=== PATIENT | female | born 1935 | race Caucasian/White ===

== ENCOUNTER 2020-05-03 09:37 | Inpatient (IN) | payer MEDICARE, BC ==
[~2020-05-03] VITALS: Ht 165.1 cm; Wt 67.1 kg
[2020-05-03] MEDS ORDERED: IV NORMAL SALINE 500 ML BAG IV ONE (09:45)
--- NOTE | 2020-05-03 09:50 | NUR ---
Patient BIB RA from home for c/o gen weakness. A/Ox4. Speech is clear, speaks in complete sentences. No acute neuro deficits at this time. Respiratory even and unlabored, no cough or sob. No cardiovascular distress, denies any cp, palpitations. Denies any n/v/d, or any distress at this time. Patient in bed at lowest position, sr upx2, call light within reach. Fall and safety precautions implemented per protocol.
--- NOTE | 2020-05-03 09:52 | NUR ---
DR Bah spoke to Dr Fragoso for tele admit.
[2020-05-03 10:13] LABS: BASOPHILS % (AUTO) 0.2 % (0.0-2.0); EOSINOPHILS # (AUTO) 0.1 K/uL (0.0-0.7); EOSINOPHILS % (AUTO) 0.7 % (0.0-7.0); LYMPHOCYTES # (AUTO) 1.3 K/uL (20.0-40.0); LYMPHOCYTES % (AUTO) 9.2 % (20.5-51.5); MEAN CORPUSCULAR HEMOGLOBIN 29.1 uug (24.7-32.8); MEAN CORPUSCULAR HGB CONC 31 g/dL (32.3-35.6); MEAN CORPUSCULAR VOLUME 92.7 fL (75.5-95.3); MONOCYTES % (AUTO) 7.3 % (0.0-11.0); NEUTROPHILS # (AUTO) 11.7 K/uL (1.8-8.9); NEUTROPHILS % (AUTO) 82.6 % (38.5-71.5); PLATELET COUNT (AUTO) 300 K/uL (179-408); WHITE BLOOD COUNT (AUTO) 14.1 K/uL (3.8-11.8)
[2020-05-03] MEDS ORDERED: IMIP25TA6 PO (10:14)
[2020-05-03] MEDS ORDERED: VALS320T2 PO (10:14)
[2020-05-03] MEDS ORDERED: THYR60TA2 PO (10:14)
[2020-05-03] MEDS ORDERED: APIX2.5T PO (10:14)
[2020-05-03] MEDS ORDERED: ALLO100T PO (10:14)
[2020-05-03] MEDS ORDERED: AMLO10TA7 PO (10:14)
[2020-05-03] MEDS ORDERED: MEMA10TA PO (10:14)
[2020-05-03 10:17] LABS: HEMOGLOBIN 5.8 g/dL (10.9-14.3); RED BLOOD CELL COUNT(AUTO) 1.99 MIL/uL (3.63-4.92)
[2020-05-03 10:18] LABS: HEMATOCRIT 18.4 % (31.2-41.9)
[2020-05-03 10:22] LABS: CARBON DIOXIDE 25 mmol/L (21-32); CHLORIDE 109 mmol/L (98-107); CREATININE 2.2 mg/dL (0.6-1.3); GLUCOSE 125 mg/dL (74-106); POTASSIUM 3.8 mmol/L (3.5-5.1)
[2020-05-03 10:30] LABS: UREA NITROGEN, BLOOD 100 mg/dL (7-18)
[2020-05-03] MEDS ORDERED: PANTOPRAZOLE SODIUM IV 80 MG in IV DEXTROSE 5% 100 ML IV ONE (10:30)
[2020-05-03 10:38] LABS: *OCCULT BLOOD STOOL POSITIVE (NEGATIVE)
[2020-05-03] MEDS ORDERED: PANTOPRAZOLE SODIUM 40 MG VIAL ONE (10:43)
[2020-05-03] MEDS ORDERED: Z GUARD REMEDY PASTE 57 GM TUBE TOP PRN (11:30)
[2020-05-03] MEDS ORDERED: MAGNESIUM HYDROXIDE 30 ML LIQUID UDC PO PRN (11:30)
[2020-05-03] MEDS ORDERED: PANTOPRAZOLE SODIUM IV 40 MG in IV DEXTROSE 5% 100 ML IV ONE (11:30)
[2020-05-03] MEDS ORDERED: ONDANSETRON 4 MG/2 ML VIAL IV PRN (11:30)
[2020-05-03] MEDS ORDERED: HYDROCODONE/APAP 5-325MG TABLET PO PRN (11:30)
--- NOTE | 2020-05-03 11:30 | NUR ---
Patient placed on O2 via NC.
[2020-05-03 11:56] LABS: EOSINOPHILS % (MANUAL) 1 % (0-8); LYMPHOCYTES % (MANUAL) 22 % (20-40); MONOCYTES % (MANUAL) 6 % (2-10); NEUTROPHILS % (MANUAL) 71 % (42-75)
--- NOTE | 2020-05-03 12:41 | NUR ---
Report given to SAM Price
--- NOTE | 2020-05-03 13:07 | NUR ---
pRBC #1 started, pre-infusion vitals taken. Will continue to monitor during initial blood infusion.
--- NOTE | 2020-05-03 13:22 | NUR ---
post 15min infusion patient negative for any transfusion reactions. Patient will be transported to [facility] to be monitored closely.
--- NOTE | 2020-05-03 13:40 | NUR ---
Patient transported to [facility] in stable condition. Transfusion infusing well.
--- NOTE | 2020-05-03 14:00 | NUR ---
Received pt from ER. TELE SNR. Blood infusing on left hand without any s/s of infiltration. Noted redness on martha heels picture taken. Pt very pale vss taken. No s/s of any current active bleeding but will monitor. Pt is in no acute distress. Pt able to return demonstrate proper use of call light. Call light is within reach. Pt denies any c/o pain.
[2020-05-03 14:15] VITALS: BP 114/60
[2020-05-03] MEDS: IMIPRAMINE HCL 25 MG TABLET PO SCH (17:39)
--- NOTE | 2020-05-03 18:15 | NUR ---
1800Called LAb secondary to recheck of h/h is not done yet. test and turn up technician states shell draw blood soon. 1814 Noted culture media laboratory assistant here to draw blood on patient. Urine specimen sent to lab as ordered. Pt tolerated the blood transfusion - ended @ 1525. No reaction noted. Pt started on clear liquid - no c/o n/v. Pt is in no acute distress.
[2020-05-03 18:40] LABS: *BILIRUBIN,URIN NEGATIVE (NEGATIVE); *BLOOD, URINE NEGATIVE (NEGATIVE); *CLARITY,URINE SLIGHTLY CLOUDY (CLEAR); *COLOR,URINE YELLOW (YELLOW); *KETONES,URINE NEGATIVE (NEGATIVE); *UROBILINOGEN,URINE 0.2 E.U./dl (NORMAL); LEUKOCYTE ESTERASE ,URINE 1+ (NEGATIVE); NITRITE, URINE NEGATIVE (NEGATIVE); PH,URINE 5.5 (5.0-8.0); UGLUCOSE NEGATIVE (NEGATIVE)
[2020-05-03 18:48] LABS: BASOPHILS % (AUTO) 0.3 % (0.0-2.0); EOSINOPHILS # (AUTO) 0.2 K/uL (0.0-0.7); EOSINOPHILS % (AUTO) 1.1 % (0.0-7.0); HEMATOCRIT 21.7 % (31.2-41.9); LYMPHOCYTES # (AUTO) 1.2 K/uL (20.0-40.0); LYMPHOCYTES % (AUTO) 7.7 % (20.5-51.5); MEAN CORPUSCULAR HEMOGLOBIN 29.2 uug (24.7-32.8); MEAN CORPUSCULAR HGB CONC 32 g/dL (32.3-35.6); MEAN CORPUSCULAR VOLUME 92.4 fL (75.5-95.3); MONOCYTES # (AUTO) 1.3 K/uL (2.0-10.0); MONOCYTES % (AUTO) 8.4 % (0.0-11.0); NEUTROPHILS # (AUTO) 12.6 K/uL (1.8-8.9); NEUTROPHILS % (AUTO) 82.5 % (38.5-71.5); PLATELET COUNT (AUTO) 254 K/uL (179-408); WHITE BLOOD COUNT (AUTO) 15.3 K/uL (3.8-11.8)
[2020-05-03 18:49] LABS: RED BLOOD CELL COUNT(AUTO) 2.35 MIL/uL (3.63-4.92)
[2020-05-03 19:00] LABS: HEMOGLOBIN 6.9 g/dL (10.9-14.3)
--- NOTE | 2020-05-03 19:30 | NUR ---
RECEIVED PT IN NO ACUTE DISTRESS. PT ALERT AND ORIENTEDX3. IV INTACT. SAFETY AND COMFORT PROVIDED.WILL CONTINUE TO MONITOR.
[2020-05-03 20:36] VITALS: BP 123/60
--- NOTE | 2020-05-03 20:50 | NUR ---
UPDATE THE RESULT OF THE HEMOGLOBIN RESULT TO DR NURSING HOME MANAGER. DR SANCHEZ ORDERED 1PRBC TO BE TRANSFUSE AND LASIX 20 MG POST TRANSFUSION.
[2020-05-03 21:44] LABS: BACTERIA,URINE MODERATE /HPF (NONE SEEN); RBC,URINE 0-3 /HPF (0-3); SQUAMOUS EPITHELIAL CELL,UR FEW /HPF (NONE SEEN)
[2020-05-03 23:31] VITALS: BP 108/56
[2020-05-03 23:51] VITALS: BP 107/51
[2020-05-04] VITALS (16 sets, daily range): BP systolic 82–116; BP diastolic 45–62
--- NOTE | 2020-05-04 02:20 | NUR ---
BLOOD TRANSFUSION DONE. NO ADVERSE REACTION NOTED. PT AFEBRILE. BLOOD PRESSURE WITHIN NORMAL LIMIT. WILL CONTINUE TO MONITOR.
[2020-05-04] MEDS ORDERED: FUROSEMIDE 20 MG/2 ML VIAL IV ONE (04:15)
[2020-05-04] MEDS: ACETAMINOPHEN 325 MG TABLET PO PRN ×2 (04:48→17:05)
--- NOTE | 2020-05-04 06:19 | NUR ---
PT SLEPT INTERMITTENTLY. PT IN NO ACUTE DISTRESS. PT GIVEN TYLENOL AT 0448H FOR HER BILATERAL LEG PAIN. IV INTACT. PT COMPLIANT WITH CARE. PT CAN MAKE HER NEEDS KNOWN. SAFETY AND COMFORT PROVIDED. ALL NEEDS ARE MET WILL ENDORSE TO INCOMING NURSE FOR CONTINUITY OF CARE.
[2020-05-04 06:54] LABS: BASOPHILS % (AUTO) 0.2 % (0.0-2.0); EOSINOPHILS # (AUTO) 0.2 K/uL (0.0-0.7); EOSINOPHILS % (AUTO) 1.8 % (0.0-7.0); HEMATOCRIT 23.9 % (31.2-41.9); HEMOGLOBIN 7.8 g/dL (10.9-14.3); LYMPHOCYTES % (AUTO) 7.1 % (20.5-51.5); MEAN CORPUSCULAR HEMOGLOBIN 29.8 uug (24.7-32.8); MEAN CORPUSCULAR HGB CONC 33 g/dL (32.3-35.6); MEAN CORPUSCULAR VOLUME 91.2 fL (75.5-95.3); MONOCYTES # (AUTO) 1.2 K/uL (2.0-10.0); NEUTROPHILS # (AUTO) 11.1 K/uL (1.8-8.9); NEUTROPHILS % (AUTO) 81.9 % (38.5-71.5); PLATELET COUNT (AUTO) 232 K/uL (179-408); RED BLOOD CELL COUNT(AUTO) 2.62 MIL/uL (3.63-4.92); WHITE BLOOD COUNT (AUTO) 13.5 K/uL (3.8-11.8)
[2020-05-04 07:08] LABS: CARBON DIOXIDE 22 mmol/L (21-32); CHLORIDE 109 mmol/L (98-107); CHOLESTEROL 87 mg/dL (<200); CREATININE 2.5 mg/dL (0.6-1.3); GLUCOSE 112 mg/dL (74-106); HDL CHOLESTEROL 25 mg/dL (40-60); MAGNESIUM 1.5 mg/dL (1.8-2.4); PHOSPHOROUS 3.5 mg/dL (2.5-4.9); POTASSIUM 3.7 mmol/L (3.5-5.1); TRIGLYCERIDES 123 MG/DL (30-150)
[2020-05-04 07:41] LABS: UREA NITROGEN, BLOOD 101 mg/dL (7-18)
--- NOTE | 2020-05-04 08:00 | NUR ---
Pt is in no acute distress. Pt very pale. Current h/h trending up. Will monitor pt for bleeding. Fall precaution implemented. Call light is within reach. IV site no redness noted.
[2020-05-04] MEDS: AMLODIPINE 10 MG TABLET PO SCH (08:09)
[2020-05-04] MEDS: THYROID 60 MG TABLET PO SCH (08:09)
[2020-05-04] MEDS: ALLOPURINOL 100 MG TABLET PO SCH (08:09)
[2020-05-04] MEDS: NAMENDA 14 MG PO SCH (08:13)
[2020-05-04] MEDS ORDERED: PANTOPRAZOLE SODIUM 40 MG VIAL IV SCH (09:00)
[2020-05-04] MEDS: CEFTRIAXONE 1 G in IV DEXTROSE 5% 50 ML IV SCH (10:41)
[2020-05-04 10:53] LABS: BILIRUBIN,DIRECT 0.2 mg/dL (0.0-0.2); BILIRUBIN,TOTAL 0.6 mg/dL (0.2-1.0)
[2020-05-04] MEDS ORDERED: MAGNESIUM SULFATE/D5W 100 ML IV SCH (11:00)
--- NOTE | 2020-05-04 12:00 | NUR ---
Pt tolerated physical therapy session. Pt kept NPO for possible EGD today at 6PM .
[2020-05-04 14:02] LABS: BASOPHILS % (AUTO) 0.2 % (0.0-2.0); EOSINOPHILS # (AUTO) 0.2 K/uL (0.0-0.7); EOSINOPHILS % (AUTO) 1.3 % (0.0-7.0); HEMATOCRIT 21.3 % (31.2-41.9); LYMPHOCYTES # (AUTO) 0.8 K/uL (20.0-40.0); LYMPHOCYTES % (AUTO) 5.7 % (20.5-51.5); MEAN CORPUSCULAR HEMOGLOBIN 28.9 uug (24.7-32.8); MEAN CORPUSCULAR HGB CONC 32 g/dL (32.3-35.6); MEAN CORPUSCULAR VOLUME 91.7 fL (75.5-95.3); MONOCYTES # (AUTO) 1.1 K/uL (2.0-10.0); MONOCYTES % (AUTO) 8.4 % (0.0-11.0); NEUTROPHILS # (AUTO) 11.3 K/uL (1.8-8.9); NEUTROPHILS % (AUTO) 84.4 % (38.5-71.5); PLATELET COUNT (AUTO) 244 K/uL (179-408); WHITE BLOOD COUNT (AUTO) 13.4 K/uL (3.8-11.8)
[2020-05-04 14:06] LABS: HEMOGLOBIN 6.7 g/dL (10.9-14.3); RED BLOOD CELL COUNT(AUTO) 2.32 MIL/uL (3.63-4.92)
--- NOTE | 2020-05-04 15:00 | NUR ---
Clarified with DR bin KLINE pt to have egd tomorrow and npo after midnight.
--- NOTE | 2020-05-04 17:00 | NUR ---
Blood transfusion initiated. Will monitor patient for reaction.
[2020-05-04] MEDS: IMIPRAMINE HCL 25 MG TABLET PO SCH (17:04)
--- NOTE | 2020-05-04 17:30 | NUR ---
bp 82/49 no reaction noted. Increased blood transfusion rate to 125cc/hr. Will monitor patient. IV site no s/s of infiltration.
--- NOTE | 2020-05-04 18:32 | NUR ---
No Bleeding visually noted throughout shift but pt remain pale. Blood transfusion infusing well. IV no infiltration noted.
--- NOTE | 2020-05-04 19:30 | NUR ---
patient received lying in bed comfortably. aaox3. able to make needs known. no complain of distress, SOB, or pain at this time. v/s stable. safety precaution in place. bed in lowest position. side rails up x2. IVP intact and patent. will continue to monitor and assess patient.
[2020-05-04 21:39] LABS: HEMATOCRIT 23.6 % (31.2-41.9); HEMOGLOBIN 7.6 g/dL (10.9-14.3)
[2020-05-04 21:44] LABS: EOSINOPHILS % (MANUAL) 2 % (0-8); LYMPHOCYTES % (MANUAL) 6 % (20-40); MONOCYTES % (MANUAL) 8 % (2-10); NEUTROPHILS % (MANUAL) 84 % (42-75)
--- NOTE | 2020-05-04 22:00 | NUR ---
h/h lab resulted and WNL. will continue to assess and monitor.
[2020-05-05] VITALS (18 sets, daily range): BP systolic 94–143; BP diastolic 47–73
--- NOTE | 2020-05-05 04:10 | NUR ---
patient slept intermittently. no c/o of pain or SOB. a/o x3. pale on assessment otherwise v/s stable and no acute distress noted. PIV intact and patent on both IV. no BM. urinating with bedpan clear and yellow. safety precautions provided. bed in lowest position. side rails upx2. bed alarm on. preop checklist completed. NPO after midnight. consent in folder. NSR on tele monitor. will continue to monitor and assess.
--- NOTE | 2020-05-05 05:00 | NUR ---
contacted lab and spoke with Kelle regarding blood draw before surgery. informed that hotel operation manager just got onto shift and he will be up soon.
--- NOTE | 2020-05-05 05:30 | NUR ---
lab work taken down by SAM and given to Kelle for result before surgery.
[2020-05-05 05:36] LABS: BASOPHILS # (AUTO) 0.1 K/uL (0.0-8.0); BASOPHILS % (AUTO) 0.5 % (0.0-2.0); EOSINOPHILS # (AUTO) 0.3 K/uL (0.0-0.7); EOSINOPHILS % (AUTO) 2.2 % (0.0-7.0); HEMATOCRIT 21.5 % (31.2-41.9); LYMPHOCYTES # (AUTO) 0.8 K/uL (20.0-40.0); LYMPHOCYTES % (AUTO) 6.4 % (20.5-51.5); MEAN CORPUSCULAR HEMOGLOBIN 29.9 uug (24.7-32.8); MEAN CORPUSCULAR HGB CONC 33 g/dL (32.3-35.6); MEAN CORPUSCULAR VOLUME 91.9 fL (75.5-95.3); MONOCYTES # (AUTO) 1.3 K/uL (2.0-10.0); MONOCYTES % (AUTO) 9.9 % (0.0-11.0); NEUTROPHILS # (AUTO) 10.6 K/uL (1.8-8.9); PLATELET COUNT (AUTO) 232 K/uL (179-408); WHITE BLOOD COUNT (AUTO) 13.1 K/uL (3.8-11.8)
[2020-05-05] MEDS ORDERED: ETOMIDATE 20 MG/10 ML VIAL ONE (05:41)
--- NOTE | 2020-05-05 05:41 | NUR ---
report given to Patria in surgery. patient left with v/s stable and no signs of acute distress. on NC 2L by oxygen tank. aaox3. patient insisted on jewelry be left on her. RN endorsed to SAM España that blood work results will be resulted and h/h should be rechecked before surgery as trends have been low. patient safely transported to surgery in bed.
[2020-05-05 05:49] LABS: RED BLOOD CELL COUNT(AUTO) 2.34 MIL/uL (3.63-4.92)
[2020-05-05 05:56] LABS: ALANINE AMINOTRANSFERASE 10 U/L (14-59); ALKALINE PHOSPHATASE 55 U/L (50-136); ASPARTATE AMINOTRANSFERASE 12 U/L (15-37); BILIRUBIN,TOTAL 0.5 mg/dL (0.2-1.0); CARBON DIOXIDE 25 mmol/L (21-32); CHLORIDE 113 mmol/L (98-107); CREATININE 2.6 mg/dL (0.6-1.3); GLUCOSE 115 mg/dL (74-106); MAGNESIUM 1.9 mg/dL (1.8-2.4); PHOSPHOROUS 3.7 mg/dL (2.5-4.9); POTASSIUM 3.8 mmol/L (3.5-5.1); TOTAL PROTEIN, SERUM 4.8 g/dL (6.4-8.2)
[2020-05-05 06:09] LABS: UREA NITROGEN, BLOOD 119 mg/dL (7-18)
[2020-05-05] MEDS ORDERED: EPINEPHRINE 1:10,000 1 MG/10 ML DISP.SYRIN ONE (06:27)
--- NOTE | 2020-05-05 06:29 | NUR ---
PATIENT LEFT WITH TELE MONITOR BOX TO SURGERY.
[2020-05-05] MEDS ORDERED: EPINEPHRINE 1 MG/1 ML AMP ONE (06:33)
--- NOTE | 2020-05-05 07:30 | NUR ---
Received coming back from a EGD procedure. The patient was intermittently awake, however showed no sign of respiratory distress. Patient is on 3L of oxygen and saturating at 99%. Patient has IV on the right wrist 18 gauge and also 20 gauge in the left hand. Patient is NPO except medications according to orders from Dr Smith. Orders are also to transfuse 2 units of blood. Will make arrangement to administered ordered as prescribes. Safety measures are in place, patient back in room with bed locked and in the lowest position and alarm activated. Also belongings and call light are within reach. Will continue to observe.
[2020-05-05] MEDS: NAMENDA 14 MG PO SCH (09:17)
[2020-05-05] MEDS: THYROID 60 MG TABLET PO SCH (09:17)
[2020-05-05] MEDS: ALLOPURINOL 100 MG TABLET PO SCH (09:17)
[2020-05-05] MEDS: AMLODIPINE 10 MG TABLET PO SCH ×2 (09:18→17:30)
--- NOTE | 2020-05-05 10:45 | NUR ---
Transfused one unit of blood without any reaction. Patient tolerated well, Bp 116/68, oxygen saturation at 100 percent on 3 L of oxygen with heart rate at 89. Will continue to monitor.
[2020-05-05] MEDS: CEFTRIAXONE 1 G in IV DEXTROSE 5% 50 ML IV SCH (12:13)
[2020-05-05] MEDS: PANTOPRAZOLE SODIUM 40 MG VIAL IV SCH ×2 (12:21→20:02)
[2020-05-05] MEDS: IMIPRAMINE HCL 25 MG TABLET PO SCH (18:11)
--- NOTE | 2020-05-05 19:16 | NUR ---
Transfused a send unit of blood and patient tolerated well. Vitals at the end of the transfusion was BP 128/69, HR 88, temp 98.4 and oxygen sat 97%. Will continue to monitor.
--- NOTE | 2020-05-05 19:18 | NUR ---
Patient is resting in bed, saturating well on 3 L of oxygen. No signs of respiratory distress noted. All medications given as ordered. Safety measures in place, call light and belongings within reach. Will endorse to oncoming nurse
[2020-05-05] MEDS: ACETAMINOPHEN 325 MG TABLET PO PRN (20:02)
[2020-05-05 22:47] LABS: BASOPHILS % (AUTO) 0.3 % (0.0-2.0); EOSINOPHILS # (AUTO) 0.2 K/uL (0.0-0.7); EOSINOPHILS % (AUTO) 1.6 % (0.0-7.0); HEMATOCRIT 28.5 % (31.2-41.9); HEMOGLOBIN 9.2 g/dL (10.9-14.3); LYMPHOCYTES # (AUTO) 1.1 K/uL (20.0-40.0); MEAN CORPUSCULAR HEMOGLOBIN 28.5 uug (24.7-32.8); MEAN CORPUSCULAR HGB CONC 32 g/dL (32.3-35.6); MEAN CORPUSCULAR VOLUME 88.1 fL (75.5-95.3); MONOCYTES # (AUTO) 1.7 K/uL (2.0-10.0); MONOCYTES % (AUTO) 12.7 % (0.0-11.0); NEUTROPHILS # (AUTO) 10.2 K/uL (1.8-8.9); NEUTROPHILS % (AUTO) 77.4 % (38.5-71.5); PLATELET COUNT (AUTO) 220 K/uL (179-408); RED BLOOD CELL COUNT(AUTO) 3.24 MIL/uL (3.63-4.92); WHITE BLOOD COUNT (AUTO) 13.1 K/uL (3.8-11.8)
[2020-05-06] VITALS: BP 119/66
[2020-05-06 00:06] LABS: LYMPHOCYTES % (MANUAL) 9 % (20-40); MONOCYTES % (MANUAL) 6 % (2-10); NEUTROPHILS % (MANUAL) 85 % (42-75)
[2020-05-06 04:03] VITALS: BP 116/64
--- NOTE | 2020-05-06 06:16 | NUR ---
patient slept intermittently throughout the night. bilateral PIV intact and patent. tolerated all meds due without any ASE. on NC 2L. safety precautions in place. bed in lowest place and side rails up x2. v/s stable and no signs of acute distress. will continue to monitor patient and assess.
[2020-05-06] MEDS: ALLOPURINOL 100 MG TABLET PO SCH (08:03)
[2020-05-06] MEDS: THYROID 60 MG TABLET PO SCH (08:04)
[2020-05-06] MEDS: AMLODIPINE 10 MG TABLET PO SCH (08:04)
[2020-05-06] MEDS: NAMENDA 14 MG PO SCH (08:04)
[2020-05-06] MEDS: PANTOPRAZOLE SODIUM 40 MG VIAL IV SCH ×2 (08:06→20:18)
[2020-05-06] MEDS: CEFTRIAXONE 1 G in IV DEXTROSE 5% 50 ML IV SCH (09:16)
[2020-05-06 11:40] VITALS: BP 119/88
[2020-05-06 15:37] VITALS: BP 134/61
[2020-05-06] MEDS: IMIPRAMINE HCL 25 MG TABLET PO SCH (17:07)
[2020-05-06 17:37] LABS: BASOPHILS # (AUTO) 0.1 K/uL (0.0-8.0); BASOPHILS % (AUTO) 0.5 % (0.0-2.0); EOSINOPHILS # (AUTO) 0.3 K/uL (0.0-0.7); EOSINOPHILS % (AUTO) 2.4 % (0.0-7.0); HEMATOCRIT 25.7 % (31.2-41.9); HEMOGLOBIN 8.2 g/dL (10.9-14.3); LYMPHOCYTES # (AUTO) 0.8 K/uL (20.0-40.0); LYMPHOCYTES % (AUTO) 5.6 % (20.5-51.5); MEAN CORPUSCULAR HEMOGLOBIN 28.4 uug (24.7-32.8); MEAN CORPUSCULAR HGB CONC 32 g/dL (32.3-35.6); MEAN CORPUSCULAR VOLUME 88.9 fL (75.5-95.3); MONOCYTES # (AUTO) 1.4 K/uL (2.0-10.0); MONOCYTES % (AUTO) 9.8 % (0.0-11.0); NEUTROPHILS # (AUTO) 11.3 K/uL (1.8-8.9); NEUTROPHILS % (AUTO) 81.7 % (38.5-71.5); PLATELET COUNT (AUTO) 245 K/uL (179-408); RED BLOOD CELL COUNT(AUTO) 2.89 MIL/uL (3.63-4.92); WHITE BLOOD COUNT (AUTO) 13.9 K/uL (3.8-11.8)
[2020-05-06 18:02] LABS: ALANINE AMINOTRANSFERASE 12 U/L (14-59); ALKALINE PHOSPHATASE 45 U/L (50-136); ASPARTATE AMINOTRANSFERASE 15 U/L (15-37); BILIRUBIN,TOTAL 0.5 mg/dL (0.2-1.0); CARBON DIOXIDE 23 mmol/L (21-32); CHLORIDE 113 mmol/L (98-107); GLUCOSE 120 mg/dL (74-106); PHOSPHOROUS 4.1 mg/dL (2.5-4.9); POTASSIUM 3.7 mmol/L (3.5-5.1); TOTAL PROTEIN, SERUM 5.3 g/dL (6.4-8.2)
[2020-05-06 18:05] LABS: UREA NITROGEN, BLOOD 103 mg/dL (7-18)
--- NOTE | 2020-05-06 19:30 | NUR ---
RECEIVED PT AWAKE, ALERT AND ORIENTEDX3. PT IN NO ACUTE DISTRESS. IV INTACT. PT ON 2L NASAL CANNULA. SAFETY AND COMFORT PROVIDED. WILL CONTINUE TO MONITOR.
[2020-05-06 20:00] VITALS: BP 124/61
[2020-05-06 20:06] VITALS: BP 124/61
[2020-05-06] MEDS: ACETAMINOPHEN 325 MG TABLET PO PRN (21:58)
[2020-05-07 00:09] VITALS: BP 131/51
[2020-05-07 04:03] VITALS: BP 126/62
--- NOTE | 2020-05-07 06:29 | NUR ---
PT SLEPT COMFORTABLY. PT IN NO ACUTE DISTRESS. IV INTACT. PRESCRIBED MEDICATION GIVEN AND PT TOLERATED IT WELL.. PT COOPERATIVE WITH CARE. PT ON 2L NASAL CANNULA. PT TURNED AND REPOSITIONED. SAFETY AND COMFORT PROVIDED. WILL ENDORSE TO INCOMING NURSE FOR CONTINUITY OF CARE.
[2020-05-07 06:40] LABS: BASOPHILS # (AUTO) 0.1 K/uL (0.0-8.0); BASOPHILS % (AUTO) 0.4 % (0.0-2.0); EOSINOPHILS # (AUTO) 0.5 K/uL (0.0-0.7); EOSINOPHILS % (AUTO) 3.4 % (0.0-7.0); HEMATOCRIT 26.4 % (31.2-41.9); HEMOGLOBIN 8.7 g/dL (10.9-14.3); LYMPHOCYTES # (AUTO) 0.9 K/uL (20.0-40.0); MEAN CORPUSCULAR HEMOGLOBIN 29.3 uug (24.7-32.8); MEAN CORPUSCULAR HGB CONC 33 g/dL (32.3-35.6); MEAN CORPUSCULAR VOLUME 89.4 fL (75.5-95.3); MONOCYTES # (AUTO) 1.7 K/uL (2.0-10.0); NEUTROPHILS # (AUTO) 11.2 K/uL (1.8-8.9); NEUTROPHILS % (AUTO) 78.2 % (38.5-71.5); PLATELET COUNT (AUTO) 257 K/uL (179-408); RED BLOOD CELL COUNT(AUTO) 2.96 MIL/uL (3.63-4.92); WHITE BLOOD COUNT (AUTO) 14.3 K/uL (3.8-11.8)
[2020-05-07] MEDS ORDERED: PANT40TA2 PO (07:14)
[2020-05-07] MEDS ORDERED: CEPH-569 PO (07:14)
[2020-05-07 07:17] LABS: ALANINE AMINOTRANSFERASE 13 U/L (14-59); ALKALINE PHOSPHATASE 62 U/L (50-136); ASPARTATE AMINOTRANSFERASE 16 U/L (15-37); BILIRUBIN,TOTAL 0.5 mg/dL (0.2-1.0); CARBON DIOXIDE 26 mmol/L (21-32); CHLORIDE 110 mmol/L (98-107); CREATININE 2.2 mg/dL (0.6-1.3); GLUCOSE 122 mg/dL (74-106); MAGNESIUM 2.8 mg/dL (1.8-2.4); PHOSPHOROUS 3.3 mg/dL (2.5-4.9); POTASSIUM 3.7 mmol/L (3.5-5.1); TOTAL PROTEIN, SERUM 5.5 g/dL (6.4-8.2)
[2020-05-07 07:18] LABS: UREA NITROGEN, BLOOD 99 mg/dL (7-18)
[2020-05-07] MEDS: PANTOPRAZOLE SODIUM 40 MG VIAL IV SCH (08:28)
[2020-05-07] MEDS: THYROID 60 MG TABLET PO SCH (08:29)
[2020-05-07] MEDS: ALLOPURINOL 100 MG TABLET PO SCH (08:29)
[2020-05-07] MEDS: NAMENDA 14 MG PO SCH (08:29)
[2020-05-07] MEDS: AMLODIPINE 10 MG TABLET PO SCH ×2 (08:30→08:41)
[2020-05-07] MEDS: CEFTRIAXONE 1 G in IV DEXTROSE 5% 50 ML IV SCH (09:53)
[2020-05-07 11:34] VITALS: BP 105/54
--- NOTE | 2020-05-07 14:02 | NUR ---
DURING STROKE ASSESSMENT TRAVEL REGISTERED NURSE PACU ENTERED THE ROOM AND SAYS DO NOT DO ANY MORE ASSESSMENTS. ALLOW HIM TO REST AND GIVE THE MEDICATIONS ONLY THAT SHE HAS JUST ORDERED, HE WILL TRANSFER OUT TO ANOTHER HOSPITAL.
[2020-05-07 15:04] VITALS: BP 126/61
== END 2020-05-07 15:30 | DRG 377 ==
LOC: ER 09:37 → TELE3 13:26
PROVIDERS: ADMIT Internal Medicine; ATTEND Internal Medicine
PROC: 30233N1 Transfusion of Nonautologous Red Blood Cells into Peripheral Vein, Percutaneous Approach (ICD-10-PCS; principal; 2020-05-03)
PROC: 0W3P8ZZ Control Bleeding in Gastrointestinal Tract, Via Natural or Artificial Opening Endoscopic (ICD-10-PCS; 2020-05-05)
PROC: 0DB68ZX Excision of Stomach, Via Natural or Artificial Opening Endoscopic, Diagnostic (ICD-10-PCS; 2020-05-05)
DX: K25.4 Chronic or unspecified gastric ulcer with hemorrhage (principal); N17.0 Acute kidney failure with tubular necrosis; A41.9 Sepsis, unspecified organism; N39.0 Urinary tract infection, site not specified; N25.81 Secondary hyperparathyroidism of renal origin; D68.9 Coagulation defect, unspecified; D64.9 Anemia, unspecified; D50.0 Iron deficiency anemia secondary to blood loss (chronic); E03.9 Hypothyroidism, unspecified; E78.5 Hyperlipidemia, unspecified; F03.90 Unspecified dementia, unspecified severity, without behavioral disturbance, psychotic disturbance, mood disturbance, and anxiety; I48.91 Unspecified atrial fibrillation; I13.10 Hypertensive heart and chronic kidney disease without heart failure, with stage 1 through stage 4 chronic kidney disease, or unspecified chronic kidney disease; N18.9 Chronic kidney disease, unspecified; I71.2 Thoracic aortic aneurysm, without rupture; K29.70 Gastritis, unspecified, without bleeding; Z79.01 Long term (current) use of anticoagulants; B96.20 Unspecified Escherichia coli [E. coli] as the cause of diseases classified elsewhere
CPT/HCPCS: 36415; 70030-TC; 71045; 83735; 84100; 84443; 85018; 85025; 85730; 86850; 86900; 86901; 86920; 87077; 87086; 88313-TC; 88342; 93005; A4217; A4663; C9113; G0378; J0171; J0696; J1940; J3475; J3490; J7040; J7050; J7060; J8499; P9016-BL; P9021

== ENCOUNTER 2020-05-07 14:02 | Inpatient (IN) | payer MEDICARE, BC ==
[~2020-05-07] VITALS: Ht 165.1 cm; Wt 66.9 kg
[~2020-05-07 14:02] MED LIST: ALLO100T PO; AMLO10TA7 PO; APIX2.5T PO; CEPH-569 PO; IMIP25TA6 PO; MEMA10TA PO; PANT40TA2 PO; THYR60TA2 PO; VALS320T2 PO
[2020-05-07 20:27] VITALS: BP 125/60
[2020-05-08 04:34] VITALS: BP 115/56
[2020-05-08] MEDS: PANTOPRAZOLE SODIUM 40 MG TABLET.DR PO SCH ×2 (06:32→17:07)
[2020-05-08 08:00] VITALS: BP 109/60
[2020-05-08] MEDS: CEphaleXIN 250 MG CAPSULE PO SCH ×3 (08:54→17:07)
[2020-05-08] MEDS: THYROID 60 MG TABLET PO SCH (08:55)
[2020-05-08] MEDS: ALLOPURINOL 100 MG TABLET PO SCH (08:56)
[2020-05-08] MEDS: MEMANTINE HCL 5 MG TABLET PO SCH ×2 (08:57→20:31)
[2020-05-08] MEDS: VALSARTAN 160 MG TABLET PO SCH (08:57)
[2020-05-08] MEDS: AMLODIPINE 10 MG TABLET PO SCH (08:58)
[2020-05-08] MEDS: HYDROCODONE/APAP 5-325MG TABLET PO PRN ×2 (11:55→17:53)
[2020-05-08 15:42] VITALS: BP 125/59
[2020-05-08] MEDS: IMIPRAMINE HCL 25 MG TABLET PO SCH (17:07)
[2020-05-08 20:20] VITALS: BP 112/54
[2020-05-09] VITALS (10 sets, daily range): BP systolic 116–134; BP diastolic 51–76
[2020-05-09] MEDS: HYDROCODONE/APAP 5-325MG TABLET PO PRN (04:42)
[2020-05-09] MEDS: THYROID 60 MG TABLET PO SCH (06:10)
[2020-05-09] MEDS: PANTOPRAZOLE SODIUM 40 MG TABLET.DR PO SCH ×2 (06:11→16:54)
[2020-05-09 06:18] LABS: ALANINE AMINOTRANSFERASE 17 U/L (14-59); ALKALINE PHOSPHATASE 64 U/L (50-136); ASPARTATE AMINOTRANSFERASE 18 U/L (15-37); BILIRUBIN,TOTAL 0.3 mg/dL (0.2-1.0); CARBON DIOXIDE 22 mmol/L (21-32); CHLORIDE 110 mmol/L (98-107); CREATININE 2.2 mg/dL (0.6-1.3); GLUCOSE 124 mg/dL (74-106); MAGNESIUM 2.7 mg/dL (1.8-2.4); PHOSPHOROUS 3.3 mg/dL (2.5-4.9); POTASSIUM 3.9 mmol/L (3.5-5.1); TOTAL PROTEIN, SERUM 5.2 g/dL (6.4-8.2)
[2020-05-09 06:19] LABS: BASOPHILS % (AUTO) 0.4 % (0.0-2.0); EOSINOPHILS # (AUTO) 0.6 K/uL (0.0-0.7); EOSINOPHILS % (AUTO) 5.2 % (0.0-7.0); LYMPHOCYTES % (AUTO) 9.5 % (20.5-51.5); MEAN CORPUSCULAR HEMOGLOBIN 30.1 uug (24.7-32.8); MEAN CORPUSCULAR HGB CONC 33 g/dL (32.3-35.6); MEAN CORPUSCULAR VOLUME 91.2 fL (75.5-95.3); MONOCYTES # (AUTO) 1.2 K/uL (2.0-10.0); MONOCYTES % (AUTO) 11.6 % (0.0-11.0); NEUTROPHILS # (AUTO) 7.9 K/uL (1.8-8.9); NEUTROPHILS % (AUTO) 73.3 % (38.5-71.5); PLATELET COUNT (AUTO) 272 K/uL (179-408); WHITE BLOOD COUNT (AUTO) 10.8 K/uL (3.8-11.8)
[2020-05-09 06:27] LABS: UREA NITROGEN, BLOOD 87 mg/dL (7-18)
[2020-05-09 06:47] LABS: HEMATOCRIT 20.9 % (31.2-41.9); HEMOGLOBIN 6.9 g/dL (10.9-14.3)
[2020-05-09] MEDS: ALLOPURINOL 100 MG TABLET PO SCH (09:03)
[2020-05-09] MEDS: MEMANTINE HCL 5 MG TABLET PO SCH ×2 (09:03→20:35)
[2020-05-09] MEDS: VALSARTAN 160 MG TABLET PO SCH (09:04)
[2020-05-09] MEDS: AMLODIPINE 10 MG TABLET PO SCH (09:04)
[2020-05-09] MEDS: CEphaleXIN 250 MG CAPSULE PO SCH ×3 (09:05→16:54)
[2020-05-09] MEDS: IMIPRAMINE HCL 25 MG TABLET PO SCH (17:01)
[2020-05-09 18:28] LABS: EOSINOPHILS % (MANUAL) 2 % (0-8); LYMPHOCYTES % (MANUAL) 11 % (20-40); MONOCYTES % (MANUAL) 6 % (2-10); NEUTROPHILS % (MANUAL) 81 % (42-75)
[2020-05-10 05:08] VITALS: BP 125/61
[2020-05-10] MEDS: PANTOPRAZOLE SODIUM 40 MG TABLET.DR PO SCH (06:04)
[2020-05-10] MEDS: THYROID 60 MG TABLET PO SCH (06:04)
[2020-05-10 06:53] LABS: BASOPHILS % (AUTO) 0.6 % (0.0-2.0); EOSINOPHILS # (AUTO) 0.4 K/uL (0.0-0.7); EOSINOPHILS % (AUTO) 4.9 % (0.0-7.0); HEMATOCRIT 23.6 % (31.2-41.9); HEMOGLOBIN 7.6 g/dL (10.9-14.3); LYMPHOCYTES # (AUTO) 0.7 K/uL (20.0-40.0); LYMPHOCYTES % (AUTO) 8.9 % (20.5-51.5); MEAN CORPUSCULAR HEMOGLOBIN 29.7 uug (24.7-32.8); MEAN CORPUSCULAR HGB CONC 32 g/dL (32.3-35.6); MEAN CORPUSCULAR VOLUME 91.6 fL (75.5-95.3); MONOCYTES % (AUTO) 12.1 % (0.0-11.0); NEUTROPHILS # (AUTO) 5.9 K/uL (1.8-8.9); NEUTROPHILS % (AUTO) 73.5 % (38.5-71.5); PLATELET COUNT (AUTO) 262 K/uL (179-408); RED BLOOD CELL COUNT(AUTO) 2.57 MIL/uL (3.63-4.92)
[2020-05-10 07:05] LABS: CARBON DIOXIDE 29 mmol/L (21-32); CHLORIDE 110 mmol/L (98-107); GLUCOSE 117 mg/dL (74-106); MAGNESIUM 2.5 mg/dL (1.8-2.4); PHOSPHOROUS 3.6 mg/dL (2.5-4.9); POTASSIUM 4.2 mmol/L (3.5-5.1); UREA NITROGEN, BLOOD 65 mg/dL (7-18)
[2020-05-10 08:49] VITALS: BP 127/66
[2020-05-10] MEDS: MEMANTINE HCL 5 MG TABLET PO SCH ×2 (08:59→20:36)
[2020-05-10] MEDS: AMLODIPINE 10 MG TABLET PO SCH (09:00)
[2020-05-10] MEDS: CEphaleXIN 250 MG CAPSULE PO SCH ×3 (09:00→17:34)
[2020-05-10] MEDS: ALLOPURINOL 100 MG TABLET PO SCH (09:00)
[2020-05-10] MEDS: VALSARTAN 160 MG TABLET PO SCH (09:00)
[2020-05-10 16:42] VITALS: BP 124/66
[2020-05-10] MEDS: IMIPRAMINE HCL 25 MG TABLET PO SCH (17:34)
[2020-05-10 20:09] VITALS: BP 129/55
[2020-05-10] MEDS: PANTOPRAZOLE SODIUM 40 MG VIAL IV SCH (20:36)
[2020-05-11 05:04] VITALS: BP 140/67
[2020-05-11] MEDS: THYROID 60 MG TABLET PO SCH (06:30)
[2020-05-11 06:38] LABS: BASOPHILS % (AUTO) 0.3 % (0.0-2.0); EOSINOPHILS # (AUTO) 0.5 K/uL (0.0-0.7); EOSINOPHILS % (AUTO) 5.7 % (0.0-7.0); HEMATOCRIT 23.7 % (31.2-41.9); HEMOGLOBIN 7.6 g/dL (10.9-14.3); LYMPHOCYTES # (AUTO) 0.7 K/uL (20.0-40.0); LYMPHOCYTES % (AUTO) 8.6 % (20.5-51.5); MEAN CORPUSCULAR HGB CONC 32 g/dL (32.3-35.6); MONOCYTES # (AUTO) 1.1 K/uL (2.0-10.0); NEUTROPHILS # (AUTO) 5.9 K/uL (1.8-8.9); NEUTROPHILS % (AUTO) 72.4 % (38.5-71.5); PLATELET COUNT (AUTO) 266 K/uL (179-408); RED BLOOD CELL COUNT(AUTO) 2.54 MIL/uL (3.63-4.92); WHITE BLOOD COUNT (AUTO) 8.1 K/uL (3.8-11.8)
[2020-05-11 06:49] LABS: CARBON DIOXIDE 29 mmol/L (21-32); CHLORIDE 111 mmol/L (98-107); GLUCOSE 116 mg/dL (74-106); MAGNESIUM 2.4 mg/dL (1.8-2.4); PHOSPHOROUS 3.4 mg/dL (2.5-4.9); POTASSIUM 3.9 mmol/L (3.5-5.1); UREA NITROGEN, BLOOD 49 mg/dL (7-18)
[2020-05-11] MEDS: ALLOPURINOL 100 MG TABLET PO SCH (08:40)
[2020-05-11] MEDS: CEphaleXIN 250 MG CAPSULE PO SCH ×3 (08:40→17:25)
[2020-05-11] MEDS: PANTOPRAZOLE SODIUM 40 MG VIAL IV SCH ×2 (08:41→21:05)
[2020-05-11] MEDS: MEMANTINE HCL 5 MG TABLET PO SCH ×2 (08:41→21:05)
[2020-05-11] MEDS: AMLODIPINE 10 MG TABLET PO SCH (08:41)
[2020-05-11] MEDS: VALSARTAN 160 MG TABLET PO SCH (08:41)
[2020-05-11 09:12] VITALS: BP 125/69
[2020-05-11 16:08] VITALS: BP 109/54
[2020-05-11 16:15] VITALS: BP 121/49
[2020-05-11] MEDS: IMIPRAMINE HCL 25 MG TABLET PO SCH (17:25)
[2020-05-11 20:15] VITALS: BP 128/63
[2020-05-12 04:12] VITALS: BP 116/57
[2020-05-12] MEDS: THYROID 60 MG TABLET PO SCH (06:08)
[2020-05-12] MEDS: VALSARTAN 160 MG TABLET PO SCH (09:04)
[2020-05-12] MEDS: PANTOPRAZOLE SODIUM 40 MG VIAL IV SCH ×2 (09:04→21:00)
[2020-05-12] MEDS: AMLODIPINE 10 MG TABLET PO SCH (09:05)
[2020-05-12] MEDS: MEMANTINE HCL 5 MG TABLET PO SCH ×2 (09:05→21:31)
[2020-05-12] MEDS: HYDROCODONE/APAP 5-325MG TABLET PO PRN ×2 (09:05→17:24)
[2020-05-12] MEDS: ALLOPURINOL 100 MG TABLET PO SCH (09:06)
[2020-05-12 10:02] VITALS: BP 133/67
[2020-05-12 15:54] VITALS: BP 119/63
[2020-05-12] MEDS: IMIPRAMINE HCL 25 MG TABLET PO SCH (17:24)
[2020-05-12 20:00] VITALS: BP 144/64
[2020-05-13] VITALS (9 sets, daily range): BP systolic 109–138; BP diastolic 58–76
[2020-05-13] MEDS: THYROID 60 MG TABLET PO SCH (06:18)
[2020-05-13 06:56] LABS: ALANINE AMINOTRANSFERASE 12 U/L (14-59); ALKALINE PHOSPHATASE 73 U/L (50-136); ASPARTATE AMINOTRANSFERASE 15 U/L (15-37); BILIRUBIN,TOTAL 0.3 mg/dL (0.2-1.0); CARBON DIOXIDE 29 mmol/L (21-32); CHLORIDE 108 mmol/L (98-107); CREATININE 1.9 mg/dL (0.6-1.3); EOSINOPHILS # (AUTO) 0.6 K/uL (0.0-0.7); GLUCOSE 106 mg/dL (74-106); LYMPHOCYTES # (AUTO) 0.8 K/uL (20.0-40.0); MAGNESIUM 2.1 mg/dL (1.8-2.4); MONOCYTES # (AUTO) 0.9 K/uL (2.0-10.0); NEUTROPHILS # (AUTO) 5.5 K/uL (1.8-8.9); PHOSPHOROUS 3.5 mg/dL (2.5-4.9); TOTAL PROTEIN, SERUM 5.4 g/dL (6.4-8.2); UREA NITROGEN, BLOOD 31 mg/dL (7-18)
[2020-05-13 06:58] LABS: BASOPHILS # (AUTO) 0.1 K/uL (0.0-8.0); BASOPHILS % (AUTO) 0.7 % (0.0-2.0); EOSINOPHILS % (AUTO) 7.3 % (0.0-7.0); HEMATOCRIT 22.6 % (31.2-41.9); LYMPHOCYTES % (AUTO) 10.2 % (20.5-51.5); MEAN CORPUSCULAR HGB CONC 33 g/dL (32.3-35.6); MEAN CORPUSCULAR VOLUME 92.2 fL (75.5-95.3); MONOCYTES % (AUTO) 11.2 % (0.0-11.0); NEUTROPHILS % (AUTO) 70.6 % (38.5-71.5); PLATELET COUNT (AUTO) 297 K/uL (179-408); WHITE BLOOD COUNT (AUTO) 7.9 K/uL (3.8-11.8)
[2020-05-13 07:15] LABS: RED BLOOD CELL COUNT(AUTO) 2.45 MIL/uL (3.63-4.92)
[2020-05-13 07:18] LABS: HEMOGLOBIN 7.4 g/dL (10.9-14.3)
[2020-05-13] MEDS: ALLOPURINOL 100 MG TABLET PO SCH (08:47)
[2020-05-13] MEDS: VALSARTAN 160 MG TABLET PO SCH (08:47)
[2020-05-13] MEDS: AMLODIPINE 10 MG TABLET PO SCH (08:47)
[2020-05-13] MEDS: MEMANTINE HCL 5 MG TABLET PO SCH ×2 (08:47→21:05)
[2020-05-13] MEDS: PANTOPRAZOLE SODIUM 40 MG TABLET.DR PO SCH (17:28)
[2020-05-13] MEDS: IMIPRAMINE HCL 25 MG TABLET PO SCH (17:28)
[2020-05-14 04:00] VITALS: BP 135/68
[2020-05-14] MEDS: PANTOPRAZOLE SODIUM 40 MG TABLET.DR PO SCH ×2 (06:24→17:00)
[2020-05-14] MEDS: THYROID 60 MG TABLET PO SCH (06:24)
[2020-05-14] MEDS: VALSARTAN 160 MG TABLET PO SCH (08:39)
[2020-05-14] MEDS: ALLOPURINOL 100 MG TABLET PO SCH (08:39)
[2020-05-14] MEDS: AMLODIPINE 10 MG TABLET PO SCH (08:39)
[2020-05-14] MEDS: MEMANTINE HCL 5 MG TABLET PO SCH ×2 (08:39→20:13)
[2020-05-14] MEDS ORDERED: BISACODYL 10 MG SUPP.RECT RC PRN (09:15)
[2020-05-14] MEDS ORDERED: MAGNESIUM CITRATE 296 ML BOTTLE PO ONE (09:15)
[2020-05-14 09:19] VITALS: BP 132/72
[2020-05-14] MEDS: DOCUSATE SODIUM 100 MG CAPSULE PO SCH ×2 (10:14→20:13)
[2020-05-14 15:46] VITALS: BP 105/52
[2020-05-14] MEDS: IMIPRAMINE HCL 25 MG TABLET PO SCH (17:09)
[2020-05-14 20:56] VITALS: BP 139/67
[2020-05-14] MEDS: HYDROCODONE/APAP 5-325MG TABLET PO PRN (21:22)
[2020-05-15 06:10] VITALS: BP 138/74
[2020-05-15] MEDS: THYROID 60 MG TABLET PO SCH (06:56)
[2020-05-15] MEDS: PANTOPRAZOLE SODIUM 40 MG TABLET.DR PO SCH ×2 (06:57→17:31)
[2020-05-15 07:03] LABS: BASOPHILS % (AUTO) 0.5 % (0.0-2.0); EOSINOPHILS # (AUTO) 0.5 K/uL (0.0-0.7); EOSINOPHILS % (AUTO) 7.4 % (0.0-7.0); HEMATOCRIT 25.4 % (31.2-41.9); HEMOGLOBIN 8.5 g/dL (10.9-14.3); LYMPHOCYTES # (AUTO) 0.8 K/uL (20.0-40.0); LYMPHOCYTES % (AUTO) 11.6 % (20.5-51.5); MEAN CORPUSCULAR HEMOGLOBIN 29.3 uug (24.7-32.8); MEAN CORPUSCULAR HGB CONC 33 g/dL (32.3-35.6); MONOCYTES # (AUTO) 0.9 K/uL (2.0-10.0); MONOCYTES % (AUTO) 12.2 % (0.0-11.0); NEUTROPHILS # (AUTO) 4.9 K/uL (1.8-8.9); NEUTROPHILS % (AUTO) 68.3 % (38.5-71.5); PLATELET COUNT (AUTO) 275 K/uL (179-408); RED BLOOD CELL COUNT(AUTO) 2.89 MIL/uL (3.63-4.92); WHITE BLOOD COUNT (AUTO) 7.2 K/uL (3.8-11.8)
[2020-05-15 07:11] LABS: CARBON DIOXIDE 33 mmol/L (21-32); CHLORIDE 109 mmol/L (98-107); CREATININE 1.7 mg/dL (0.6-1.3); GLUCOSE 105 mg/dL (74-106); POTASSIUM 4.4 mmol/L (3.5-5.1); UREA NITROGEN, BLOOD 28 mg/dL (7-18)
[2020-05-15 08:00] VITALS: BP 125/73
[2020-05-15] MEDS: MEMANTINE HCL 5 MG TABLET PO SCH ×2 (08:48→20:56)
[2020-05-15] MEDS: AMLODIPINE 10 MG TABLET PO SCH (08:49)
[2020-05-15] MEDS: ALLOPURINOL 100 MG TABLET PO SCH (08:49)
[2020-05-15] MEDS: DOCUSATE SODIUM 100 MG CAPSULE PO SCH ×2 (08:49→20:56)
[2020-05-15] MEDS: VALSARTAN 160 MG TABLET PO SCH (08:50)
[2020-05-15] MEDS: ENSURE ENLIVE (VAN) 240 ML LIQUID PO SCH ×2 (13:25→17:31)
[2020-05-15 14:44] LABS: *OCCULT BLOOD STOOL POSITIVE (NEGATIVE)
[2020-05-15 16:23] VITALS: BP 112/49
[2020-05-15] MEDS: IMIPRAMINE HCL 25 MG TABLET PO SCH (18:20)
[2020-05-15 21:19] VITALS: BP 122/82
[2020-05-16 05:34] VITALS: BP 154/85
[2020-05-16] MEDS: PANTOPRAZOLE SODIUM 40 MG TABLET.DR PO SCH ×2 (06:03→17:14)
[2020-05-16] MEDS: THYROID 60 MG TABLET PO SCH (06:03)
[2020-05-16 08:00] VITALS: BP 131/70
[2020-05-16] MEDS: AMLODIPINE 10 MG TABLET PO SCH (09:00)
[2020-05-16] MEDS: ENSURE ENLIVE (VAN) 240 ML LIQUID PO SCH ×2 (09:08→17:14)
[2020-05-16] MEDS: DOCUSATE SODIUM 100 MG CAPSULE PO SCH ×2 (09:09→20:02)
[2020-05-16] MEDS: VALSARTAN 160 MG TABLET PO SCH ×2 (09:10→17:13)
[2020-05-16] MEDS: MEMANTINE HCL 5 MG TABLET PO SCH ×2 (09:10→20:02)
[2020-05-16] MEDS: HYDROCODONE/APAP 5-325MG TABLET PO PRN (09:10)
[2020-05-16] MEDS: ALLOPURINOL 100 MG TABLET PO SCH (09:11)
[2020-05-16 16:00] VITALS: BP 140/54
[2020-05-16] MEDS: IMIPRAMINE HCL 25 MG TABLET PO SCH (17:13)
[2020-05-16 20:43] VITALS: BP 116/65
[2020-05-17 05:33] VITALS: BP 150/73
[2020-05-17] MEDS: THYROID 60 MG TABLET PO SCH (06:00)
[2020-05-17] MEDS: PANTOPRAZOLE SODIUM 40 MG TABLET.DR PO SCH ×2 (06:00→16:36)
[2020-05-17] MEDS: ENSURE ENLIVE (VAN) 240 ML LIQUID PO SCH ×2 (08:13→16:36)
[2020-05-17] MEDS: MEMANTINE HCL 5 MG TABLET PO SCH ×2 (08:40→20:43)
[2020-05-17] MEDS: ALLOPURINOL 100 MG TABLET PO SCH (08:40)
[2020-05-17] MEDS: VALSARTAN 160 MG TABLET PO SCH (08:40)
[2020-05-17] MEDS: DOCUSATE SODIUM 100 MG CAPSULE PO SCH ×2 (08:40→20:42)
[2020-05-17] MEDS: AMLODIPINE 10 MG TABLET PO SCH (08:40)
[2020-05-17 08:45] VITALS: BP 144/79
[2020-05-17 16:36] VITALS: BP 147/66
[2020-05-17] MEDS: IMIPRAMINE HCL 25 MG TABLET PO SCH (17:02)
[2020-05-17 20:00] VITALS: BP 130/61
[2020-05-17] MEDS: METOPROLOL TARTRATE 25 MG TABLET PO SCH (20:43)
[2020-05-18 04:56] VITALS: BP 126/71
[2020-05-18] MEDS: THYROID 60 MG TABLET PO SCH (06:08)
[2020-05-18] MEDS: PANTOPRAZOLE SODIUM 40 MG TABLET.DR PO SCH (06:08)
[2020-05-18 08:00] VITALS: BP 140/72
[2020-05-18] MEDS: ENSURE ENLIVE (VAN) 240 ML LIQUID PO SCH (08:32)
[2020-05-18] MEDS: DOCUSATE SODIUM 100 MG CAPSULE PO SCH (08:33)
[2020-05-18] MEDS: MEMANTINE HCL 5 MG TABLET PO SCH (08:34)
[2020-05-18] MEDS: ALLOPURINOL 100 MG TABLET PO SCH (08:34)
[2020-05-18] MEDS: METOPROLOL TARTRATE 25 MG TABLET PO SCH (08:34)
[2020-05-18 08:35] VITALS: BP 140/72
[2020-05-18] MEDS: AMLODIPINE 10 MG TABLET PO SCH (08:35)
[2020-05-18] MEDS ORDERED: VALSARTAN 80 MG TABLET PO SCH (09:00)
== END 2020-05-18 14:30 | disposition home health service (06) | DRG 811 ==
PROVIDERS: ADMIT Physical Medicine & Rehabilitation Pain Medicine; ATTEND Physical Medicine & Rehabilitation Pain Medicine
PROC: 30233N1 Transfusion of Nonautologous Red Blood Cells into Peripheral Vein, Percutaneous Approach (ICD-10-PCS; principal; 2020-05-09)
DX: D62 Acute posthemorrhagic anemia (principal); K25.4 Chronic or unspecified gastric ulcer with hemorrhage; E43 Unspecified severe protein-calorie malnutrition; N17.0 Acute kidney failure with tubular necrosis; D68.59 Other primary thrombophilia; I50.32 Chronic diastolic (congestive) heart failure; N25.81 Secondary hyperparathyroidism of renal origin; I13.0 Hypertensive heart and chronic kidney disease with heart failure and stage 1 through stage 4 chronic kidney disease, or unspecified chronic kidney disease; R53.1 Weakness; R53.81 Other malaise; K56.41 Fecal impaction; M10.9 Gout, unspecified; M19.90 Unspecified osteoarthritis, unspecified site; E03.9 Hypothyroidism, unspecified; E78.5 Hyperlipidemia, unspecified; F03.90 Unspecified dementia, unspecified severity, without behavioral disturbance, psychotic disturbance, mood disturbance, and anxiety; I48.91 Unspecified atrial fibrillation; N18.9 Chronic kidney disease, unspecified; I71.2 Thoracic aortic aneurysm, without rupture; E11.22 Type 2 diabetes mellitus with diabetic chronic kidney disease; I70.0 Atherosclerosis of aorta
CPT/HCPCS: 36415; 70030-TC; 74018; 82378; 83735; 84100; 85018; 85025; 86850; 86900; 86901; 86920; C9113; J7040; J7050; J8499; P9016-BL; P9021

== ENCOUNTER 2021-05-20 20:50 | Inpatient (IN) | payer MEDICARE, BC ==
[~2021-05-20] VITALS: Ht 162.6 cm; Wt 59.5 kg
[~2021-05-20 20:50] MED LIST changes: +AMLO-212 PO; -AMLO10TA7 PO; -APIX2.5T PO; -CEPH-569 PO; +ELIQUIS; +VANC125C11 PO
--- NOTE | 2021-05-20 20:52 | NUR ---
Admitted patient from [facility] via ambulance. Awake, alert and oriented x 3. Transferred gently from [facility] to bed by 2 EMT. Oriented to bed control, room, staff, TV remote and call light. Complaint of tolerable pain when turned due to routine skin assessment. Routine admission care done. Plan of care initiated. VS WNL.
[2021-05-20] MEDS ORDERED: Z GUARD REMEDY PASTE 57 GM TUBE TOP PRN (21:15)
[2021-05-20 21:47] VITALS: BP 152/78
[2021-05-20] MEDS ORDERED: AMLO10TA59 PO (22:32)
[2021-05-20] MEDS ORDERED: HEPA500034 SUBCUT (22:32)
[2021-05-20] MEDS ORDERED: MELA3TAB41 PO (22:32)
[2021-05-20] MEDS ORDERED: ACET-73 PO (22:32)
[2021-05-20] MEDS ORDERED: IMIP25TA6 PO (22:32)
[2021-05-20] MEDS ORDERED: TRAM50TA2 PO (22:32)
[2021-05-20] MEDS ORDERED: ASPI-1420 PO (22:32)
[2021-05-20] MEDS ORDERED: METO-356 PO (22:32)
[2021-05-21 04:13] VITALS: BP_SYST 140; BP_SYST 160; BP_DIAS 76
--- NOTE | 2021-05-21 06:30 | NUR ---
Shift End Report: Slept good. No complaint presented. All needs attended and met. No significant event reported. Continue care as planned.
[2021-05-21 08:25] VITALS: BP 155/71
[2021-05-21] MEDS ORDERED: Medication Not On Formulary EA (Heparin Sodium,Porcine (Heparin Sodium) 5,000 UNIT) SUBCUT SCH (09:00)
[2021-05-21] MEDS ORDERED: MELATONIN 3 MG TABLET PO PRN (09:00)
[2021-05-21] MEDS ORDERED: ACETAMINOPHEN ES 500 MG TABLET PO PRN (09:00)
[2021-05-21] MEDS ORDERED: ALLOPURINOL 100 MG TABLET PO SCH (09:00)
[2021-05-21] MEDS: VALSARTAN 160 MG TABLET PO SCH (09:46)
[2021-05-21] MEDS: ASPIRIN EC 81 MG TABLET.DR PO SCH (09:46)
[2021-05-21] MEDS: METOPROLOL SUCCINATE XL 25 MG TAB.SR.24H PO SCH (09:46)
[2021-05-21] MEDS: MEMANTINE HCL 10 MG TABLET PO SCH (09:46)
[2021-05-21] MEDS: AMLODIPINE 10 MG TABLET PO SCH (09:47)
[2021-05-21] MEDS: HEPARIN SODIUM,PORCINE 5,000 UNITS/ML VIAL SQ SCH ×2 (09:49→20:20)
[2021-05-21] MEDS: THYROID 60 MG TABLET PO SCH (10:00)
[2021-05-21] MEDS: IMIPRAMINE HCL 25 MG TABLET PO SCH ×2 (10:33→16:31)
[2021-05-21] MEDS: TRAMADOL HCL 50 MG TABLET PO PRN (11:15)
[2021-05-21 14:44] VITALS: BP 164/75
[2021-05-21 16:14] VITALS: BP 151/78
[2021-05-21] MEDS: PANTOPRAZOLE SODIUM 40 MG TABLET.DR PO SCH (16:26)
[2021-05-21 20:20] VITALS: BP 147/77
[2021-05-22 04:37] VITALS: BP 163/84
[2021-05-22] MEDS: PANTOPRAZOLE SODIUM 40 MG TABLET.DR PO SCH ×2 (06:06→16:27)
--- NOTE | 2021-05-22 06:10 | NUR ---
Shift End Report: No significant event reported all night. Slept good. No complaint presented. VS stable. Continue current rehab plan of care.
[2021-05-22 07:24] LABS: HEMATOCRIT 24.4 % (31.2-41.9); MEAN CORPUSCULAR HEMOGLOBIN 30.3 uug (24.7-32.8); MEAN CORPUSCULAR VOLUME 92.6 fL (75.5-95.3); PLATELET COUNT (AUTO) 187 K/uL (179-408)
[2021-05-22 07:48] LABS: ALKALINE PHOSPHATASE 83 U/L (50-136); ASPARTATE AMINOTRANSFERASE 18 U/L (15-37); BILIRUBIN,DIRECT 0.1 mg/dL (0.0-0.2); BILIRUBIN,TOTAL 0.5 mg/dL (0.2-1.0); CARBON DIOXIDE 20 mmol/L (21-32); CHLORIDE 113 mmol/L (98-107); CREATININE 2.8 mg/dL (0.6-1.3); GLUCOSE 99 mg/dL (74-106); PHOSPHOROUS 3.7 mg/dL (2.5-4.9); POTASSIUM 4.6 mmol/L (3.5-5.1); TOTAL PROTEIN, SERUM 5.9 g/dL (6.4-8.2); UREA NITROGEN, BLOOD 55 mg/dL (7-18)
[2021-05-22 07:58] LABS: ALANINE AMINOTRANSFERASE < 6 U/L (14-59)
[2021-05-22 08:00] VITALS: BP 165/74
[2021-05-22] MEDS: ASPIRIN EC 81 MG TABLET.DR PO SCH (08:11)
[2021-05-22] MEDS: AMLODIPINE 10 MG TABLET PO SCH (08:11)
[2021-05-22] MEDS: THYROID 60 MG TABLET PO SCH (08:11)
[2021-05-22] MEDS: METOPROLOL SUCCINATE XL 25 MG TAB.SR.24H PO SCH (08:11)
[2021-05-22] MEDS: IMIPRAMINE HCL 25 MG TABLET PO SCH ×2 (08:11→16:27)
[2021-05-22] MEDS: HEPARIN SODIUM,PORCINE 5,000 UNITS/ML VIAL SQ SCH ×2 (08:13→20:36)
[2021-05-22] MEDS: VALSARTAN 160 MG TABLET PO SCH (08:13)
[2021-05-22] MEDS: MEMANTINE HCL 10 MG TABLET PO SCH (08:13)
[2021-05-22] MEDS: TRAMADOL HCL 50 MG TABLET PO PRN (09:03)
[2021-05-22] MEDS ORDERED: TRAMADOL HCL 50 MG TABLET PO PRN ×2 (14:52→15:00)
[2021-05-22] MEDS ORDERED: ACETAMINOPHEN ES 500 MG TABLET PO PRN ×2 (15:14→15:15)
[2021-05-22 15:43] LABS: EOSINOPHILS % (MANUAL) 8 % (0-8); LYMPHOCYTES % (MANUAL) 13 % (20-40); MONOCYTES % (MANUAL) 15 % (2-10); NEUTROPHILS % (MANUAL) 64 % (42-75)
[2021-05-22 16:00] VITALS: BP 123/69
[2021-05-22] MEDS ORDERED: MAGNESIUM HYDROXIDE 30 ML LIQUID UDC PO PRN (16:00)
[2021-05-22 20:15] VITALS: BP 143/66
--- NOTE | 2021-05-22 20:45 | NUR ---
Refused Miralax offered. Encouraged increased oral fluid intake as tolerated.
[2021-05-23 05:39] VITALS: BP 154/70
[2021-05-23] MEDS: PANTOPRAZOLE SODIUM 40 MG TABLET.DR PO SCH ×2 (06:28→16:21)
[2021-05-23 08:00] VITALS: BP 152/77
[2021-05-23] MEDS: MEMANTINE HCL 5 MG TABLET PO SCH ×2 (08:17→16:21)
[2021-05-23] MEDS: MIRALAX 17 GM POWD.PACK PO PRN (08:17)
[2021-05-23] MEDS: THYROID 60 MG TABLET PO SCH (08:17)
[2021-05-23] MEDS: IMIPRAMINE HCL 25 MG TABLET PO SCH ×2 (08:17→16:21)
[2021-05-23] MEDS: AMLODIPINE 10 MG TABLET PO SCH (08:17)
[2021-05-23] MEDS: ASPIRIN EC 81 MG TABLET.DR PO SCH (08:18)
[2021-05-23] MEDS: VALSARTAN 160 MG TABLET PO SCH (08:18)
[2021-05-23] MEDS: METOPROLOL SUCCINATE XL 25 MG TAB.SR.24H PO SCH (08:18)
[2021-05-23] MEDS: HEPARIN SODIUM,PORCINE 5,000 UNITS/ML VIAL SQ SCH ×2 (08:22→21:00)
[2021-05-23] MEDS ORDERED: MEMANTINE HCL 10 MG TABLET PO SCH (09:00)
[2021-05-23] MEDS: ENSURE CLEAR 240 ML LIQUID (MIX BERRY) PO SCH (09:43)
[2021-05-23] MEDS: ACETAMINOPHEN ES 500 MG TABLET PO PRN (11:31)
[2021-05-23] MEDS ORDERED: HYDROMORPHONE 1 MG/1 ML DISP.SYRIN IV PRN (11:45)
[2021-05-23] MEDS ORDERED: TRAMADOL HCL 50 MG TABLET PO PRN (13:30)
[2021-05-23] MEDS: HYDROCODONE/APAP 5-325MG TABLET PO PRN (13:50)
--- NOTE | 2021-05-23 14:37 | NUR ---
INDIVIDUALIZED PLAN OF CARE
[2021-05-23 15:16] VITALS: BP 151/76
[2021-05-23 20:24] VITALS: BP 135/78
[2021-05-24 04:21] VITALS: BP 159/75
[2021-05-24] MEDS: HYDROCODONE/APAP 5-325MG TABLET PO PRN ×2 (05:32→11:40)
[2021-05-24] MEDS: PANTOPRAZOLE SODIUM 40 MG TABLET.DR PO SCH ×2 (06:25→16:12)
[2021-05-24 06:32] LABS: MEAN CORPUSCULAR HEMOGLOBIN 29.9 uug (24.7-32.8); MEAN CORPUSCULAR VOLUME 92.2 fL (75.5-95.3); PLATELET COUNT (AUTO) 203 K/uL (179-408)
[2021-05-24 06:44] LABS: ALANINE AMINOTRANSFERASE < 6 U/L (14-59); ALKALINE PHOSPHATASE 84 U/L (50-136); ASPARTATE AMINOTRANSFERASE 15 U/L (15-37); BILIRUBIN,TOTAL 0.4 mg/dL (0.2-1.0); CARBON DIOXIDE 21 mmol/L (21-32); CHLORIDE 108 mmol/L (98-107); CREATININE 2.7 mg/dL (0.6-1.3); GLUCOSE 101 mg/dL (74-106); PHOSPHOROUS 3.7 mg/dL (2.5-4.9); TOTAL PROTEIN, SERUM 5.8 g/dL (6.4-8.2); UREA NITROGEN, BLOOD 52 mg/dL (7-18)
[2021-05-24 07:31] VITALS: BP 157/85
[2021-05-24] MEDS: VALSARTAN 160 MG TABLET PO SCH (08:03)
[2021-05-24] MEDS: ASPIRIN EC 81 MG TABLET.DR PO SCH (08:03)
[2021-05-24] MEDS: MEMANTINE HCL 5 MG TABLET PO SCH ×2 (08:04→16:12)
[2021-05-24] MEDS: METOPROLOL SUCCINATE XL 25 MG TAB.SR.24H PO SCH (08:04)
[2021-05-24] MEDS: IMIPRAMINE HCL 25 MG TABLET PO SCH ×2 (08:04→16:12)
[2021-05-24] MEDS: THYROID 60 MG TABLET PO SCH (08:04)
[2021-05-24] MEDS: AMLODIPINE 10 MG TABLET PO SCH (08:04)
[2021-05-24] MEDS: HEPARIN SODIUM,PORCINE 5,000 UNITS/ML VIAL SQ SCH ×2 (08:05→20:08)
[2021-05-24] MEDS: ENSURE CLEAR 240 ML LIQUID (MIX BERRY) PO SCH (08:32)
[2021-05-24 15:43] VITALS: BP 157/75
[2021-05-24] MEDS: CARVEDILOL 3.125 MG TABLET PO SCH (17:07)
[2021-05-24 20:16] VITALS: BP 147/76
[2021-05-25 04:16] VITALS: BP 142/73
[2021-05-25] MEDS: PANTOPRAZOLE SODIUM 40 MG TABLET.DR PO SCH ×2 (06:01→17:16)
[2021-05-25 08:35] VITALS: BP 177/76
[2021-05-25] MEDS: CARVEDILOL 3.125 MG TABLET PO SCH (08:40)
[2021-05-25] MEDS: THYROID 60 MG TABLET PO SCH (08:41)
[2021-05-25] MEDS: MEMANTINE HCL 5 MG TABLET PO SCH ×2 (08:42→17:16)
[2021-05-25] MEDS: ASPIRIN EC 81 MG TABLET.DR PO SCH (08:42)
[2021-05-25] MEDS: AMLODIPINE 10 MG TABLET PO SCH (08:42)
[2021-05-25] MEDS: VALSARTAN 160 MG TABLET PO SCH (08:42)
[2021-05-25] MEDS: IMIPRAMINE HCL 25 MG TABLET PO SCH ×2 (08:42→17:16)
[2021-05-25] MEDS: ENSURE CLEAR 240 ML LIQUID (MIX BERRY) PO SCH (08:43)
[2021-05-25] MEDS: HEPARIN SODIUM,PORCINE 5,000 UNITS/ML VIAL SQ SCH ×2 (08:44→20:21)
[2021-05-25] MEDS: ACETAMINOPHEN ES 500 MG TABLET PO PRN (09:23)
--- NOTE | 2021-05-25 15:26 | NUR ---
INTERDISCIPLINARY TEAM CONFERENCE
[2021-05-25 16:00] VITALS: BP 147/72
[2021-05-25] MEDS ORDERED: CARVEDILOL 6.25 MG TABLET PO SCH (18:00)
--- NOTE | 2021-05-25 18:12 | NUR ---
Patient is alert/oriented x2-3, needs reorientation, with periods of confusion and forgetfulness. PRN pain medication given prior to therapy. [place] intact to the left hip/leg, no drainage noted. No distress identified. Family members at bedside. No distress identified. Frequent visual check done. Kept call light within reach. Assisted with ADLs. All needs attended. Kept environment safe. All due meds given as ordered. Will endorse to the next shift for continuity of care.
[2021-05-25 20:00] VITALS: BP 158/73
[2021-05-25] MEDS: HYDROCODONE/APAP 5-325MG TABLET PO PRN (20:22)
[2021-05-25] MEDS ORDERED: CARVEDILOL 6.25 MG TABLET PO ONE (21:00)
[2021-05-26 04:00] VITALS: BP 156/72
[2021-05-26] MEDS: PANTOPRAZOLE SODIUM 40 MG TABLET.DR PO SCH ×2 (06:07→16:40)
--- NOTE | 2021-05-26 06:24 | NUR ---
Received pt on bed with no respiratory distress noted upon initial rounds. Patient is alert/oriented x2-3 with episodes of forgetfulness. Noted with pain of 8/10 on L hip, [place] PRN given. Dressing intact on L hip/leg. All needs attended. Call light placed within reach. Frequent visual checks done. Will endorse to next shift for continuity of care.
[2021-05-26 06:36] LABS: HEMATOCRIT 22.7 % (31.2-41.9); MEAN CORPUSCULAR HEMOGLOBIN 30.1 uug (24.7-32.8); MEAN CORPUSCULAR VOLUME 92.8 fL (75.5-95.3); PLATELET COUNT (AUTO) 216 K/uL (179-408)
[2021-05-26 07:07] LABS: IRON, SERUM 36 ug/dL (50-175)
[2021-05-26 07:17] LABS: ALANINE AMINOTRANSFERASE 6 U/L (14-59); ALKALINE PHOSPHATASE 91 U/L (50-136); ASPARTATE AMINOTRANSFERASE 17 U/L (15-37); BILIRUBIN,TOTAL 0.4 mg/dL (0.2-1.0); CARBON DIOXIDE 24 mmol/L (21-32); CHLORIDE 108 mmol/L (98-107); CREATININE 2.9 mg/dL (0.6-1.3); GLUCOSE 94 mg/dL (74-106); PHOSPHOROUS 4.4 mg/dL (2.5-4.9); TOTAL PROTEIN, SERUM 5.6 g/dL (6.4-8.2); UREA NITROGEN, BLOOD 51 mg/dL (7-18)
[2021-05-26 07:36] LABS: THYROID STIMULATING HORMONE 3.203 mIU/mL (0.358-3.740)
[2021-05-26 07:54] LABS: CHOLESTEROL 125 mg/dL (<200); HDL CHOLESTEROL 35 mg/dL (40-60); TRIGLYCERIDES 108 MG/DL (30-150)
[2021-05-26 08:00] VITALS: BP_SYST 149; BP_SYST 160; BP_DIAS 77; BP_DIAS 89
[2021-05-26] MEDS: ACETAMINOPHEN ES 500 MG TABLET PO PRN (08:18)
[2021-05-26] MEDS: THYROID 60 MG TABLET PO SCH (09:17)
[2021-05-26] MEDS: CARVEDILOL 12.5 MG TABLET PO SCH ×2 (09:17→16:41)
[2021-05-26] MEDS: IMIPRAMINE HCL 25 MG TABLET PO SCH ×2 (09:17→16:40)
[2021-05-26] MEDS: ENSURE CLEAR 240 ML LIQUID (MIX BERRY) PO SCH (09:18)
[2021-05-26] MEDS: MEMANTINE HCL 5 MG TABLET PO SCH ×2 (09:18→16:40)
[2021-05-26] MEDS: VALSARTAN 160 MG TABLET PO SCH (09:18)
[2021-05-26] MEDS: ASPIRIN EC 81 MG TABLET.DR PO SCH (09:18)
[2021-05-26] MEDS: AMLODIPINE 10 MG TABLET PO SCH (09:18)
[2021-05-26] MEDS: HEPARIN SODIUM,PORCINE 5,000 UNITS/ML VIAL SQ SCH ×2 (09:20→21:52)
[2021-05-26 16:00] VITALS: BP 118/53
--- NOTE | 2021-05-26 18:51 | NUR ---
Received patient alert/oriented, noted with forgetfulness. PRN pain medication prior to therapy given as ordered. Awaiting for stool sample, no BM during the shift. [place] intact to the left hip, no drainage noted, no s/s of infection identified. Encouraged fluid intake as tolerated. No distress identified. Frequent visual check done. Kept call light within reach. Assisted with ADLs. All needs attended. Kept environment safe. All due meds given as ordered. Will endorse to the next shift for continuity of care.
[2021-05-26 20:00] VITALS: BP 122/71
[2021-05-26] MEDS: HYDROCODONE/APAP 5-325MG TABLET PO PRN (22:11)
--- NOTE | 2021-05-27 02:40 | NUR ---
PT ASKED FOR SLEEP MEDS, AND GIVEN MELATONIN. SHE SAID IT IS NOT WORKING. PER DR ZIMMERMAN NEW ORDER GABAPENTIN PRN. CALL LIGHT WITHIN REACH, ALL NEEDS ARE ATTENDED AND MET IN THIS TIME.
[2021-05-27 04:00] VITALS: BP 141/67
[2021-05-27] MEDS: ACETAMINOPHEN ES 500 MG TABLET PO PRN (05:27)
[2021-05-27] MEDS: PANTOPRAZOLE SODIUM 40 MG TABLET.DR PO SCH ×2 (06:01→17:27)
--- NOTE | 2021-05-27 06:58 | NUR ---
Received pt on bed with no respiratory distress noted upon initial rounds. Patient is alert/oriented x2-3 with episodes of forgetfulness. Seen and examined by Dr. Francis SNYDER with new order of Gabapentin HS. Tylenol PRN given. All needs attended. Call light placed within reach. Frequent visual checks done. Will endorse to next shift for continuity of care.
[2021-05-27 07:08] LABS: FERRITIN 150 ng/mL (8-252); IRON, SERUM 38 ug/dL (50-175)
[2021-05-27 08:06] VITALS: BP 148/73
[2021-05-27] MEDS: ASPIRIN EC 81 MG TABLET.DR PO SCH (08:26)
[2021-05-27] MEDS: CARVEDILOL 12.5 MG TABLET PO SCH ×2 (08:26→17:33)
[2021-05-27] MEDS: MEMANTINE HCL 5 MG TABLET PO SCH ×2 (08:26→17:27)
[2021-05-27] MEDS: AMLODIPINE 10 MG TABLET PO SCH (08:27)
[2021-05-27] MEDS: VALSARTAN 160 MG TABLET PO SCH (08:27)
[2021-05-27] MEDS: THYROID 60 MG TABLET PO SCH (08:27)
[2021-05-27] MEDS: IMIPRAMINE HCL 25 MG TABLET PO SCH ×2 (08:27→17:27)
[2021-05-27] MEDS: HYDROCODONE/APAP 5-325MG TABLET PO PRN (08:30)
[2021-05-27] MEDS: HEPARIN SODIUM,PORCINE 5,000 UNITS/ML VIAL SQ SCH ×2 (08:31→20:44)
[2021-05-27] MEDS: ENSURE CLEAR 240 ML LIQUID (MIX BERRY) PO SCH (09:14)
[2021-05-27 15:55] VITALS: BP 131/66
--- NOTE | 2021-05-27 16:55 | NUR ---
Dr. Acosta in the unit, made aware of latest Hgb 7.4 on 05/26/21 and MD ordered CBC in am.
[2021-05-27] MEDS ORDERED: SOD FERRIC GLUC COMPLX/SUCROSE 125 MG in IV NORMAL SALINE 100 ML IV SCH (18:00)
[2021-05-27] MEDS: GABAPENTIN 100 MG CAPSULE PO SCH (20:37)
[2021-05-27 20:38] VITALS: BP 142/68
--- NOTE | 2021-05-28 03:38 | NUR ---
Awake alert and oriented x3-4 Left hip dressing clean dry and intact, VSS. Needs attended. Fall precautions maintained. Siderails up for safety. Incontinent of bowel and bladder. Kept clean and dry. No BM noted this shift.
[2021-05-28 04:40] VITALS: BP 144/62
[2021-05-28 06:16] LABS: HEMATOCRIT 23.2 % (31.2-41.9); MEAN CORPUSCULAR HEMOGLOBIN 29.7 uug (24.7-32.8); MEAN CORPUSCULAR VOLUME 93.9 fL (75.5-95.3); PLATELET COUNT (AUTO) 207 K/uL (179-408)
[2021-05-28] MEDS: PANTOPRAZOLE SODIUM 40 MG TABLET.DR PO SCH ×2 (06:35→16:15)
[2021-05-28] MEDS: MIRALAX 17 GM POWD.PACK PO PRN (06:35)
--- NOTE | 2021-05-28 06:38 | NUR ---
Lab called Hgb 7.3 Dr Beal texted. awaiting for answer. Prune juice and miralax given. Need stool for occult blood. Will monitor patient.
[2021-05-28 08:00] VITALS: BP 145/68
[2021-05-28] MEDS: MEMANTINE HCL 5 MG TABLET PO SCH ×2 (08:58→16:15)
[2021-05-28] MEDS: ASPIRIN EC 81 MG TABLET.DR PO SCH (08:58)
[2021-05-28] MEDS: IMIPRAMINE HCL 25 MG TABLET PO SCH ×2 (08:58→16:15)
[2021-05-28] MEDS: CARVEDILOL 12.5 MG TABLET PO SCH ×2 (08:59→17:14)
[2021-05-28] MEDS: THYROID 60 MG TABLET PO SCH (08:59)
[2021-05-28] MEDS: AMLODIPINE 10 MG TABLET PO SCH (09:00)
[2021-05-28] MEDS: VALSARTAN 160 MG TABLET PO SCH (09:00)
[2021-05-28] MEDS: HYDROCODONE/APAP 5-325MG TABLET PO PRN ×2 (09:02→20:46)
--- NOTE | 2021-05-28 09:02 | NUR ---
PATIENT IS IN BED AWAKE ALERT AND ORIENTED STATED C/O LEFT HIP PAIN MEDICATED ORDERED ASSISTED WITH REPOSITIONING ON ROOM AIR WITH NO SOB AT THIS TIME CALL LIGHTS AND HER PERSONAL BELONGINGS ARE WITHIN EASY REACH MADE COMFORTABLE WILL CONTINUE TO OBSERVE.
[2021-05-28] MEDS: HEPARIN SODIUM,PORCINE 5,000 UNITS/ML VIAL SQ SCH ×2 (09:04→20:41)
[2021-05-28] MEDS: ENSURE CLEAR 240 ML LIQUID (MIX BERRY) PO SCH (09:23)
[2021-05-28] MEDS ORDERED: SOD FERRIC GLUC COMPLX/SUCROSE 125 MG in IV NORMAL SALINE 100 ML IV SCH (14:00)
--- NOTE | 2021-05-28 14:30 | NUR ---
IV SITE INFILTERATED ATTEMPTED TO RESTART UNABLE TO WITH ONE ATTEMPT BUT PATIENT REFUSED FUTHER ATTEMPTS DAUGHTER AND DENTAL LABORATORY TECHNOLOGY TEACHER AT THE BEDSIDE AND STATED THAT PATIENT SHOULD GET THE ORAL VERSION OF THIS IVPB AND NOT TO ATTEMPT ANYMORE IV POKES DR SALGADO NOTIFIED AND HE STATED OKAY TO DISCONTINUE THE FERRLICIT FOR NOW AND HE WILL MAke a decision as to what the next plan will be patient and family at the bedside notified.
[2021-05-28 16:00] VITALS: BP 123/60
--- NOTE | 2021-05-28 18:57 | NUR ---
PATIENT C/O HAS EPIGASTRIC DISCOMFORTS DESPITE THE FACT THAT SHE IS ON PROTONIX TWO TIMES A DAY DR SALGADO NOTIFIED WITH NEW ORDERS AND NOTED.
[2021-05-28] MEDS ORDERED: MAG HYDROX/AL HYDROX/SIMETH 30 ML LIQUID UDC PO PRN (19:00)
--- NOTE | 2021-05-28 19:19 | NUR ---
MEDICATED WITH [place]LANTA ORDERED FOR EPIGASTRIC DISCOMFORTS MADE COMFORTABLE WILL CONTINUE TO OBSERVE
[2021-05-28 20:00] VITALS: BP 138/63
[2021-05-28] MEDS: GABAPENTIN 100 MG CAPSULE PO SCH (20:38)
--- NOTE | 2021-05-28 20:46 | NUR ---
ALERT AND STATED HAVING INCISIONAL PAIN LEFT HIP MEDICATED WITH NORCO ORDERED ORDERED REPOSITIONED FOR COMFORT LEFT HIP WITH DRESSING INTACT CALL LIGHTS AND PERSONAL BELONGINGS ARE WITHIN EASY REACH MADE COMFORTABLE AND WILL CONTINUE TO OBSERVE.
[2021-05-29 04:35] VITALS: BP 133/62
[2021-05-29] MEDS: PANTOPRAZOLE SODIUM 40 MG TABLET.DR PO SCH ×2 (06:09→16:51)
--- NOTE | 2021-05-29 06:21 | NUR ---
SLEPT MOST OF THE NITE . IN NO DISTRESS NOTED.
--- NOTE | 2021-05-29 08:00 | NUR ---
RECEIVED PATIENT ASLEEP BUT EASILY AROUSABLE ON ROUND STATED SLEPT FAIRLY WELL LAST NOC ON ROOM AIR WITH NO SHORTNESS OF BREATH AT THIS TIME LEFT HIP INCISION WITH DRESSING DRY AND INTACT CALL LIGHTS AND PERSONAL BELONGINGS ARE WITHIN EASY REACH STATED COMFORTABLE AT THIS TIME WILL CONTINUE TO OBSERVE AND PROVIDE COMFORT.
[2021-05-29 08:26] VITALS: BP 146/67
[2021-05-29] MEDS: ASPIRIN EC 81 MG TABLET.DR PO SCH (08:45)
[2021-05-29] MEDS: MEMANTINE HCL 5 MG TABLET PO SCH ×2 (08:46→16:51)
[2021-05-29] MEDS: HEPARIN SODIUM,PORCINE 5,000 UNITS/ML VIAL SQ SCH ×2 (08:46→20:28)
[2021-05-29] MEDS: IMIPRAMINE HCL 25 MG TABLET PO SCH ×2 (08:47→16:53)
[2021-05-29] MEDS: THYROID 60 MG TABLET PO SCH (08:48)
[2021-05-29] MEDS: VALSARTAN 160 MG TABLET PO SCH (08:48)
[2021-05-29] MEDS: CARVEDILOL 12.5 MG TABLET PO SCH ×2 (08:48→17:32)
[2021-05-29] MEDS: AMLODIPINE 10 MG TABLET PO SCH (08:49)
[2021-05-29] MEDS: HYDROCODONE/APAP 5-325MG TABLET PO PRN ×2 (08:49→20:20)
[2021-05-29] MEDS: ENSURE CLEAR 240 ML LIQUID (MIX BERRY) PO SCH (08:57)
--- NOTE | 2021-05-29 09:25 | NUR ---
ASSISTED PATIENT ONTO THE COMMODE MAX ASSIST OF TWO STAFF DURING HER THERAPY SESSION WITH THE PHYSICAL THERAPIST PATIENT VOIDED AND MOVED HER BOWEL SPECIMEN COLLECTED AND SENT TO THE LAB ORDERED MOVEMENT FOR THE PATIENT IS VERY DIFFICULT DUE IN PART BECAUSE SHE IS VERY SCARED EVEN HAVING DIFFICULTY USING HER RIGHT GOOD UNAFFECTED LEG FOR SUPPORT.NEEDED CONSTANT CUES DUE TO PATIENT BEING HIGHLY ANXIOUS.RETURNED BACK INTO BED WITH MAS ASSIST OF TWO.
--- NOTE | 2021-05-29 10:29 | NUR ---
PATIENT SEEN AND EXAMINED BY DR BROWN WITH NEW ORDERS AND NOTED.
[2021-05-29 10:37] LABS: *BILIRUBIN,URIN NEGATIVE (NEGATIVE); *BLOOD, URINE 1+ (NEGATIVE); *CLARITY,URINE TURBID (CLEAR); *COLOR,URINE LIGHT YELLOW (YELLOW); *KETONES,URINE NEGATIVE (NEGATIVE); *UROBILINOGEN,URINE 0.2 E.U./dl (NORMAL); LEUKOCYTE ESTERASE ,URINE 3+ (NEGATIVE); NITRITE, URINE NEGATIVE (NEGATIVE); UGLUCOSE NEGATIVE (NEGATIVE)
[2021-05-29 10:43] LABS: *OCCULT BLOOD STOOL NEGATIVE (NEGATIVE)
--- NOTE | 2021-05-29 13:32 | NUR ---
NEW ORDER FOR HEMOGLOBIN AIC IN AM NOTED FROM DR SALGADO AND CARRIED OUT
[2021-05-29 14:36] LABS: BACTERIA,URINE MANY /HPF (NONE SEEN); SQUAMOUS EPITHELIAL CELL,UR FEW /HPF (NONE SEEN); URINE AMORPHOUS URATE MANY /HPF; WBC,URINE TNTC /HPF (0-3)
--- NOTE | 2021-05-29 15:45 | NUR ---
NOTED URINE RESULT POSITIVE FOR BACTERIA CALLED AND LEFT MESSAGE FOR DR SALGADO WITH NO NEW ORDERS AT THIS TIME.
[2021-05-29 16:03] VITALS: BP 127/58
--- NOTE | 2021-05-29 18:00 | NUR ---
PATIENT IS RESTING IN BED WITH FAMILY AT HER BEDSIDE STATED COMFORTABLE AT THIS TIME WILL CONTINUE TO OBSERVE.
[2021-05-29 20:19] VITALS: BP 142/60
[2021-05-29] MEDS: GABAPENTIN 100 MG CAPSULE PO SCH (20:19)
[2021-05-29] MEDS: MIRALAX 17 GM POWD.PACK PO PRN (20:20)
--- NOTE | 2021-05-29 20:20 | NUR ---
PATIENT IS ALERT BUT IS FORGETFUL MEDICATED FOR INCISIONAL PAIN ORDERED AND HELPFUL TURNED AND REPOSITIONED Q2H LEFT HIP INCISION IS CLEAN DRY AND INTACT CALL LIGHTS WITHIN EASY REACH MADE COMFORTABLE WILL CONTINUE TO OBSERVE.
[2021-05-30 04:43] VITALS: BP 137/63
[2021-05-30] MEDS: PANTOPRAZOLE SODIUM 40 MG TABLET.DR PO SCH ×2 (05:47→17:06)
[2021-05-30 05:51] LABS: HEMATOCRIT 22.4 % (31.2-41.9); MEAN CORPUSCULAR HEMOGLOBIN 30.2 uug (24.7-32.8); MEAN CORPUSCULAR VOLUME 93.8 fL (75.5-95.3); PLATELET COUNT (AUTO) 200 K/uL (179-408)
[2021-05-30 05:57] LABS: ALANINE AMINOTRANSFERASE 10 U/L (14-59); ALKALINE PHOSPHATASE 115 U/L (50-136); ASPARTATE AMINOTRANSFERASE 21 U/L (15-37); BILIRUBIN,TOTAL 0.4 mg/dL (0.2-1.0); CARBON DIOXIDE 23 mmol/L (21-32); CHLORIDE 108 mmol/L (98-107); CREATININE 3.7 mg/dL (0.6-1.3); GLUCOSE 103 mg/dL (74-106); MAGNESIUM 2.2 mg/dL (1.8-2.4); PHOSPHOROUS 5.3 mg/dL (2.5-4.9); TOTAL PROTEIN, SERUM 5.7 g/dL (6.4-8.2); UREA NITROGEN, BLOOD 58 mg/dL (7-18)
--- NOTE | 2021-05-30 06:52 | NUR ---
SLEPT MOST OF THE NITE.
--- NOTE | 2021-05-30 07:40 | NUR ---
RECEIVED PATIENT ASLEEP IN BED EASILY AROUSABLE ON ROUNDS SHE IS ALERT BUT FORGETFUL WHEN AWOKEN DENIES PAIN OR DISCOMFORTS AT THIS TIME ON ROOM AIR WITH NO S/S OF SHORTNESS OF BREATH AT THIS TIME CALL LIGHTS AND PERSONAL BELONGINGS ARE WITHIN EASY REACH MADE COMFORTABLE WILL CONTINUE TO OBSERVE AND PROVIDE COMFORT.
[2021-05-30 07:48] VITALS: BP 147/66
[2021-05-30] MEDS: IMIPRAMINE HCL 25 MG TABLET PO SCH ×2 (08:55→17:09)
[2021-05-30] MEDS: THYROID 60 MG TABLET PO SCH (08:55)
[2021-05-30] MEDS: AMLODIPINE 10 MG TABLET PO SCH (08:56)
[2021-05-30] MEDS: VALSARTAN 160 MG TABLET PO SCH (08:57)
[2021-05-30] MEDS: CARVEDILOL 12.5 MG TABLET PO SCH ×2 (08:57→17:32)
[2021-05-30] MEDS: HYDROCODONE/APAP 5-325MG TABLET PO PRN ×2 (08:57→13:31)
--- NOTE | 2021-05-30 08:57 | NUR ---
PATIENT PRE MEDICATED FOR PHYSICAL THERAPY AND WAS THEN GOTTEN OUT OF BED AND TAKEN TO [facility] FOR PHYSICAL THERAPEUTIC EXERCISES ORDERED
[2021-05-30] MEDS: MEMANTINE HCL 5 MG TABLET PO SCH ×2 (09:00→17:05)
[2021-05-30] MEDS: ENSURE CLEAR 240 ML LIQUID (MIX BERRY) PO SCH (09:00)
[2021-05-30] MEDS: HEPARIN SODIUM,PORCINE 5,000 UNITS/ML VIAL SQ SCH ×2 (09:13→20:23)
--- NOTE | 2021-05-30 12:05 | NUR ---
PATIENT SEEN AND EXAMINED BY DR BROWN WITH NEW ORDERS AND NOTED.
--- NOTE | 2021-05-30 15:09 | NUR ---
PATIENT SEEN AND EXAMINED BY DR SULTANA WITH NEW ORDERS POTASSIUM IS 6.0 WITH REPLACEMENTS AND NOTED
[2021-05-30 15:16] VITALS: BP 106/61
[2021-05-30] MEDS ORDERED: SODIUM POLYSTYRENE SULFONATE 15 G/60 ML LIQUID UDC PO ONE (15:30)
--- NOTE | 2021-05-30 18:00 | NUR ---
PATIENT WAS GOTTEN UP ON THE W/CHAIR TODAY AND TAKEN TO THE [facility] FOR PHYSICAL THERAPEUTIC EXERCISES WITH FAIR [employer]URANCE TODAY LAST NORCO WAS GIVEN AT 1331 PER PATIENTS REQUEST.
[2021-05-30 20:00] VITALS: BP 129/62
[2021-05-30] MEDS: GABAPENTIN 100 MG CAPSULE PO SCH (20:22)
[2021-05-31 04:00] VITALS: BP 150/68
[2021-05-31] MEDS: PANTOPRAZOLE SODIUM 40 MG TABLET.DR PO SCH ×2 (06:14→16:53)
[2021-05-31 06:48] LABS: HEMATOCRIT 22.5 % (31.2-41.9); MEAN CORPUSCULAR VOLUME 93.4 fL (75.5-95.3); PLATELET COUNT (AUTO) 233 K/uL (179-408)
[2021-05-31 07:38] LABS: CARBON DIOXIDE 24 mmol/L (21-32); CHLORIDE 107 mmol/L (98-107); CREATININE 3.6 mg/dL (0.6-1.3); GLUCOSE 112 mg/dL (74-106); MAGNESIUM 2.2 mg/dL (1.8-2.4); PHOSPHOROUS 5.3 mg/dL (2.5-4.9); POTASSIUM 5.8 mmol/L (3.5-5.1); UREA NITROGEN, BLOOD 57 mg/dL (7-18)
[2021-05-31 07:43] VITALS: BP 136/76
[2021-05-31] MEDS: MEMANTINE HCL 5 MG TABLET PO SCH ×2 (08:08→16:53)
[2021-05-31] MEDS: IMIPRAMINE HCL 25 MG TABLET PO SCH ×2 (08:09→16:54)
[2021-05-31] MEDS: HYDROCODONE/APAP 5-325MG TABLET PO PRN ×2 (08:09→16:55)
[2021-05-31] MEDS: HEPARIN SODIUM,PORCINE 5,000 UNITS/ML VIAL SQ SCH ×2 (08:10→20:45)
[2021-05-31] MEDS: THYROID 60 MG TABLET PO SCH (08:10)
[2021-05-31] MEDS: hydrALAZINE HCL 50 MG TABLET PO SCH ×3 (08:11→17:00)
[2021-05-31] MEDS: AMLODIPINE 10 MG TABLET PO SCH (08:11)
[2021-05-31] MEDS: ENSURE CLEAR 240 ML LIQUID (MIX BERRY) PO SCH ×2 (08:12→16:54)
[2021-05-31] MEDS: CARVEDILOL 12.5 MG TABLET PO SCH ×2 (08:12→18:26)
[2021-05-31] MEDS: MIRALAX 17 GM POWD.PACK PO PRN (08:20)
--- NOTE | 2021-05-31 08:45 | NUR ---
AWAKE ALERT ORIENTED BUT FORGETFUL PREMEDICATED FOR THERAPY THE THERAPIST HERE AND PATIENT ASSISTED UP ON THE COMMODE WITH MAX ASSIST OF TWO VERY DIFFICULT PATIENT IS GRABBING NOT COOPERATIVE WILL LET HER SIT FOR A WHILE TO SEE IF SHE IS ABLE TO MOVE HER BOWEL.
--- NOTE | 2021-05-31 11:42 | NUR ---
DR BROWN HERE SEEN PATIENT WITH NEW ORDERS AND NOTED.
[2021-05-31 15:30] VITALS: BP 117/66
[2021-05-31] MEDS ORDERED: SODIUM POLYSTYRENE SULFONATE 15 G/60 ML LIQUID UDC PO ONE (15:45)
[2021-05-31] MEDS ORDERED: IV 1/2NS 1000 ML 1,000 ML IV PRN (15:45)
--- NOTE | 2021-05-31 16:11 | NUR ---
DR SULTANA HERE TO SEE PATIENT WITH NEW ORDERS AND NOTED
--- NOTE | 2021-05-31 18:00 | NUR ---
PARAMETERS FOR PATIENTS BLOOD PRESSURE MEDICATIONS RECEIVED FROM DR SULTANA AND NOTED.PATIENT ENCOURAGED FLUID INTAKE.FAMILY AT HER BEDSIDE.
[2021-05-31 20:00] VITALS: BP 154/72
[2021-05-31] MEDS: GABAPENTIN 100 MG CAPSULE PO SCH (20:41)
--- NOTE | 2021-06-01 01:29 | NUR ---
Awake alert and oriented x2-3 VSS needs attended. No acute distress noted. Left hip dressing clean dry and intact with hanny in placed. Denies any pain nor any discomfort. All due meds given. Will monitor patient. Left hip dressing clean and dry.
[2021-06-01 01:57] VITALS: BP 164/67
[2021-06-01 04:00] VITALS: BP 162/73
[2021-06-01] MEDS: PANTOPRAZOLE SODIUM 40 MG TABLET.DR PO SCH ×2 (06:20→17:34)
[2021-06-01 06:26] LABS: HEMATOCRIT 23.9 % (31.2-41.9); MEAN CORPUSCULAR HEMOGLOBIN 30.6 uug (24.7-32.8); MEAN CORPUSCULAR VOLUME 93.4 fL (75.5-95.3); PLATELET COUNT (AUTO) 243 K/uL (179-408)
[2021-06-01 06:48] LABS: CARBON DIOXIDE 25 mmol/L (21-32); CHLORIDE 107 mmol/L (98-107); CREATININE 3.4 mg/dL (0.6-1.3); GLUCOSE 106 mg/dL (74-106); PHOSPHOROUS 5.2 mg/dL (2.5-4.9); POTASSIUM 4.8 mmol/L (3.5-5.1); UREA NITROGEN, BLOOD 53 mg/dL (7-18)
[2021-06-01 07:30] VITALS: BP 157/73
[2021-06-01] MEDS: hydrALAZINE HCL 50 MG TABLET PO SCH ×3 (08:15→17:34)
[2021-06-01] MEDS: CARVEDILOL 12.5 MG TABLET PO SCH ×2 (08:15→17:36)
[2021-06-01] MEDS: MEMANTINE HCL 5 MG TABLET PO SCH ×2 (08:15→17:34)
[2021-06-01] MEDS: IMIPRAMINE HCL 25 MG TABLET PO SCH ×2 (08:16→17:34)
[2021-06-01] MEDS: AMLODIPINE 10 MG TABLET PO SCH (08:16)
[2021-06-01] MEDS: THYROID 60 MG TABLET PO SCH (08:16)
[2021-06-01] MEDS: ENSURE CLEAR 240 ML LIQUID (MIX BERRY) PO SCH ×3 (08:17→17:35)
[2021-06-01] MEDS: HEPARIN SODIUM,PORCINE 5,000 UNITS/ML VIAL SQ SCH ×2 (08:21→20:31)
[2021-06-01] MEDS: HYDROCODONE/APAP 5-325MG TABLET PO PRN (09:40)
--- NOTE | 2021-06-01 14:41 | NUR ---
INTERDISCIPLINARY TEAM CONFERENCE
[2021-06-01 16:00] VITALS: BP 126/60
--- NOTE | 2021-06-01 18:55 | NUR ---
Patient remains alert, oriented x 2-3, not in any form of distress, on room air. She complained of pain on left hip, given PRN pain medication as ordered with noted relief. Needs attended to promptly. Call light and frequently used items placed within patient's reach. Left hip and left lateral thigh incision sites clean and dry, well coaptated. Will continue to monitor and will endorse accordingly.
--- NOTE | 2021-06-01 19:30 | NUR ---
RECEIVED PT AWAKE, ALERT AND ORIENTEDX3. PT IN NO ACUTE DISTRESS. SAFETY AND COMFORT PROVIDED. WILL CONTINUE TO MONITOR.
[2021-06-01 20:00] VITALS: BP 128/60
[2021-06-01] MEDS: GABAPENTIN 100 MG CAPSULE PO SCH (20:30)
[2021-06-02 04:00] VITALS: BP 134/64
[2021-06-02] MEDS: HYDROCODONE/APAP 5-325MG TABLET PO PRN (05:54)
--- NOTE | 2021-06-02 05:58 | NUR ---
PT SLEPT INTERMITTENTLY. PT IN NO ACUTE DISTRESS. PRESCRIBED MEDICATION GIVEN AND PT TOLERATED IT WELL. 0554H NORCO PRN GIVEN TO PT FOR HIP PAIN. PT TOLERATED IT WELL. SAFETY AND COMFORT PROVIDED. ALL NEEDS ARE MET. WILL ENDORSE TO INCOMING NURSE FOR CONTINUITY OF CARE.
[2021-06-02] MEDS: PANTOPRAZOLE SODIUM 40 MG TABLET.DR PO SCH ×2 (06:05→17:23)
[2021-06-02 06:55] LABS: CARBON DIOXIDE 25 mmol/L (21-32); CHLORIDE 106 mmol/L (98-107); CREATININE 3.4 mg/dL (0.6-1.3); GLUCOSE 100 mg/dL (74-106); POTASSIUM 3.8 mmol/L (3.5-5.1); UREA NITROGEN, BLOOD 55 mg/dL (7-18)
[2021-06-02 08:09] VITALS: BP 137/63
--- NOTE | 2021-06-02 08:15 | NUR ---
Patient received laying comfortably in bed. Alert and oriented. Denies pain. No signs of acute distress noted. Safety measures in place. Will continue to monitor.
[2021-06-02] MEDS: MEMANTINE HCL 5 MG TABLET PO SCH ×2 (08:54→17:23)
[2021-06-02] MEDS: IMIPRAMINE HCL 25 MG TABLET PO SCH ×2 (08:55→17:26)
[2021-06-02] MEDS: AMLODIPINE 10 MG TABLET PO SCH (08:55)
[2021-06-02] MEDS: CARVEDILOL 12.5 MG TABLET PO SCH ×2 (08:55→17:26)
[2021-06-02] MEDS: ENSURE CLEAR 240 ML LIQUID (MIX BERRY) PO SCH ×3 (08:56→17:24)
[2021-06-02] MEDS: THYROID 60 MG TABLET PO SCH (08:56)
[2021-06-02] MEDS: HEPARIN SODIUM,PORCINE 5,000 UNITS/ML VIAL SQ SCH ×2 (08:58→20:50)
[2021-06-02] MEDS: hydrALAZINE HCL 50 MG TABLET PO SCH ×3 (09:02→17:00)
[2021-06-02 15:25] VITALS: BP 109/48
[2021-06-02 20:00] VITALS: BP 123/68
[2021-06-02] MEDS: GABAPENTIN 100 MG CAPSULE PO SCH (20:45)
--- NOTE | 2021-06-03 02:00 | NUR ---
AAOx3-4 with some periods of forgetfulness at times. VSS. No acute distress noted. Fall precautions maintained. Call jarrett within reach. Incontinent of bowel and bladder. BM noted this shift. Kept clean and dry. All due meds given as ordered. Left hip dressing clean dry and intact. Fluids encouraged. Siderails up for safety.
[2021-06-03 04:00] VITALS: BP 140/58
[2021-06-03] MEDS: PANTOPRAZOLE SODIUM 40 MG TABLET.DR PO SCH ×2 (06:14→16:28)
--- NOTE | 2021-06-03 06:42 | NUR ---
End of shift notes: Quiet night. AAOx3-4 Needs attended. Slept well most of the shift. Incontinent of bowel and bladder. Kept clean and dry. BM noted this shift. Fall precautions maintained. Siderails up for safety.Will monitor patient.
[2021-06-03 07:32] VITALS: BP 153/62
[2021-06-03] MEDS: hydrALAZINE HCL 50 MG TABLET PO SCH ×3 (08:07→16:28)
[2021-06-03] MEDS: MEMANTINE HCL 5 MG TABLET PO SCH ×2 (08:07→16:28)
[2021-06-03] MEDS: CARVEDILOL 12.5 MG TABLET PO SCH ×2 (08:07→18:00)
[2021-06-03] MEDS: AMLODIPINE 10 MG TABLET PO SCH (08:07)
[2021-06-03] MEDS: THYROID 60 MG TABLET PO SCH (08:08)
[2021-06-03] MEDS: IMIPRAMINE HCL 25 MG TABLET PO SCH ×2 (08:08→16:28)
[2021-06-03] MEDS: HEPARIN SODIUM,PORCINE 5,000 UNITS/ML VIAL SQ SCH ×2 (08:24→20:22)
[2021-06-03] MEDS: ENSURE CLEAR 240 ML LIQUID (MIX BERRY) PO SCH ×3 (09:02→17:06)
[2021-06-03] MEDS: HYDROCODONE/APAP 10-325 MG TABLET PO PRN (09:33)
[2021-06-03] MEDS ORDERED: levoFLOXacin 500 MG TABLET PO ONE (15:00)
[2021-06-03 16:06] VITALS: BP 117/49
[2021-06-03] MEDS: GABAPENTIN 100 MG CAPSULE PO SCH (20:21)
[2021-06-03 20:30] VITALS: BP 119/52
--- NOTE | 2021-06-03 23:10 | NUR ---
Received pt resting in bed. AAO x3. No acute distress noted. Denies pain/ discomfort. Due meds given as ordered. Turned and repositioned. Both heels offloaded. Safety measures maintained. Bed alarm on. Call light within reach. Will continue to monitor.
[2021-06-04 04:24] VITALS: BP 131/56
[2021-06-04] MEDS: HYDROCODONE/APAP 10-325 MG TABLET PO PRN (06:11)
[2021-06-04] MEDS: PANTOPRAZOLE SODIUM 40 MG TABLET.DR PO SCH ×2 (06:11→16:43)
[2021-06-04] MEDS: MIRALAX 17 GM POWD.PACK PO PRN (06:11)
[2021-06-04 07:02] LABS: HEMATOCRIT 22.5 % (31.2-41.9); MEAN CORPUSCULAR HEMOGLOBIN 30.7 uug (24.7-32.8); MEAN CORPUSCULAR VOLUME 93.6 fL (75.5-95.3); PLATELET COUNT (AUTO) 232 K/uL (179-408)
[2021-06-04 07:30] LABS: ALANINE AMINOTRANSFERASE 6 U/L (14-59); ALKALINE PHOSPHATASE 110 U/L (50-136); BILIRUBIN,TOTAL 0.4 mg/dL (0.2-1.0); CARBON DIOXIDE 26 mmol/L (21-32); CHLORIDE 106 mmol/L (98-107); CREATININE 3.7 mg/dL (0.6-1.3); GLUCOSE 103 mg/dL (74-106); PHOSPHOROUS 6.1 mg/dL (2.5-4.9); POTASSIUM 4.4 mmol/L (3.5-5.1); TOTAL PROTEIN, SERUM 5.8 g/dL (6.4-8.2); UREA NITROGEN, BLOOD 57 mg/dL (7-18)
[2021-06-04 07:50] LABS: ASPARTATE AMINOTRANSFERASE 15 U/L (15-37)
[2021-06-04 08:00] VITALS: BP 129/50
[2021-06-04] MEDS: THYROID 60 MG TABLET PO SCH (08:03)
[2021-06-04] MEDS: IMIPRAMINE HCL 25 MG TABLET PO SCH ×2 (08:03→16:43)
[2021-06-04] MEDS: ENSURE CLEAR 240 ML LIQUID (MIX BERRY) PO SCH ×3 (08:04→16:44)
[2021-06-04] MEDS: CARVEDILOL 12.5 MG TABLET PO SCH ×2 (08:04→17:07)
[2021-06-04] MEDS: MEMANTINE HCL 5 MG TABLET PO SCH ×2 (08:04→16:43)
[2021-06-04] MEDS: hydrALAZINE HCL 50 MG TABLET PO SCH ×3 (08:04→16:39)
[2021-06-04] MEDS: AMLODIPINE 10 MG TABLET PO SCH (08:04)
[2021-06-04] MEDS: HEPARIN SODIUM,PORCINE 5,000 UNITS/ML VIAL SQ SCH ×2 (08:10→20:32)
[2021-06-04 08:22] LABS: NEUTROPHILS % (MANUAL) 0 % (42-75)
[2021-06-04 15:47] VITALS: BP 117/48
[2021-06-04 20:05] VITALS: BP 120/50
[2021-06-04] MEDS: GABAPENTIN 100 MG CAPSULE PO SCH (20:24)
--- NOTE | 2021-06-05 00:11 | NUR ---
Received patient sleeping in bed. Aroused easily to verbal and light touch. AAOx3. No acute distress noted. All medications given as ordered. Safety and comfort measures maintained. Call light within reach. Will continue to monitor closely.
[2021-06-05 04:05] VITALS: BP 120/53
[2021-06-05] MEDS: PANTOPRAZOLE SODIUM 40 MG TABLET.DR PO SCH ×2 (06:04→16:39)
[2021-06-05 08:00] VITALS: BP 139/66
[2021-06-05] MEDS: AMLODIPINE 10 MG TABLET PO SCH (08:04)
[2021-06-05] MEDS: CARVEDILOL 12.5 MG TABLET PO SCH ×2 (08:04→17:37)
[2021-06-05] MEDS: IMIPRAMINE HCL 25 MG TABLET PO SCH ×2 (08:05→16:39)
[2021-06-05] MEDS: hydrALAZINE HCL 50 MG TABLET PO SCH ×3 (08:05→16:45)
[2021-06-05] MEDS: THYROID 60 MG TABLET PO SCH (08:05)
[2021-06-05] MEDS: HEPARIN SODIUM,PORCINE 5,000 UNITS/ML VIAL SQ SCH ×2 (08:06→20:02)
[2021-06-05] MEDS: MEMANTINE HCL 5 MG TABLET PO SCH ×2 (08:23→16:39)
[2021-06-05 08:32] LABS: HEMATOCRIT 24.1 % (31.2-41.9); MEAN CORPUSCULAR HEMOGLOBIN 30.9 uug (24.7-32.8); MEAN CORPUSCULAR VOLUME 94.9 fL (75.5-95.3); PLATELET COUNT (AUTO) 227 K/uL (179-408)
[2021-06-05 08:35] LABS: CARBON DIOXIDE 25 mmol/L (21-32); CHLORIDE 106 mmol/L (98-107); CREATININE 3.7 mg/dL (0.6-1.3); GLUCOSE 111 mg/dL (74-106); POTASSIUM 4.8 mmol/L (3.5-5.1); UREA NITROGEN, BLOOD 61 mg/dL (7-18)
[2021-06-05] MEDS: ENSURE CLEAR 240 ML LIQUID (MIX BERRY) PO SCH ×3 (09:00→16:39)
[2021-06-05 09:52] LABS: EOSINOPHILS % (MANUAL) 8 % (0-8); LYMPHOCYTES % (MANUAL) 13 % (20-40); MONOCYTES % (MANUAL) 6 % (2-10); NEUTROPHILS % (MANUAL) 73 % (42-75)
[2021-06-05] MEDS ORDERED: levoFLOXacin 250 MG TABLET PO SCH (15:00)
[2021-06-05 16:00] VITALS: BP 115/53
[2021-06-05] MEDS: GABAPENTIN 100 MG CAPSULE PO SCH (20:01)
[2021-06-05 20:13] VITALS: BP 106/50
[2021-06-06 04:41] VITALS: BP 142/52
[2021-06-06] MEDS: PANTOPRAZOLE SODIUM 40 MG TABLET.DR PO SCH ×2 (06:06→17:05)
[2021-06-06 07:31] VITALS: BP 137/60
[2021-06-06] MEDS: MEMANTINE HCL 5 MG TABLET PO SCH ×2 (08:33→17:05)
[2021-06-06] MEDS: CARVEDILOL 12.5 MG TABLET PO SCH ×2 (08:33→17:06)
[2021-06-06] MEDS: IMIPRAMINE HCL 25 MG TABLET PO SCH ×2 (08:34→17:05)
[2021-06-06] MEDS: THYROID 60 MG TABLET PO SCH (08:34)
[2021-06-06] MEDS: AMLODIPINE 10 MG TABLET PO SCH (08:34)
[2021-06-06] MEDS: ENSURE CLEAR 240 ML LIQUID (MIX BERRY) PO SCH ×3 (08:34→17:07)
[2021-06-06] MEDS: HEPARIN SODIUM,PORCINE 5,000 UNITS/ML VIAL SQ SCH (08:35)
[2021-06-06] MEDS: hydrALAZINE HCL 50 MG TABLET PO SCH ×3 (09:00→17:00)
[2021-06-06] MEDS: HYDROCODONE/APAP 5-325MG TABLET PO PRN ×2 (10:31→17:16)
[2021-06-06 15:53] VITALS: BP 105/47
[2021-06-06 17:06] VITALS: BP 110/53
--- NOTE | 2021-06-06 18:31 | NUR ---
Pt picked up by ambulance via gurney for transfer to SNF. A&Ox4. Vital signs stable. Skin intact. No signs of acute distress. Denies pain. All belongings checked and taken.
== END 2021-06-06 17:30 | DRG 559 ==
PROVIDERS: ADMIT Physical Medicine & Rehabilitation Pain Medicine; ATTEND Physical Medicine & Rehabilitation Pain Medicine
DX: S72.142D Displaced intertrochanteric fracture of left femur, subsequent encounter for closed fracture with routine healing (principal); J96.01 Acute respiratory failure with hypoxia; J96.02 Acute respiratory failure with hypercapnia; E43 Unspecified severe protein-calorie malnutrition; N17.0 Acute kidney failure with tubular necrosis; E44.0 Moderate protein-calorie malnutrition; N18.4 Chronic kidney disease, stage 4 (severe); N17.9 Acute kidney failure, unspecified; D62 Acute posthemorrhagic anemia; D68.59 Other primary thrombophilia; N39.0 Urinary tract infection, site not specified; I13.0 Hypertensive heart and chronic kidney disease with heart failure and stage 1 through stage 4 chronic kidney disease, or unspecified chronic kidney disease; I50.32 Chronic diastolic (congestive) heart failure; T40.605D Adverse effect of unspecified narcotics, subsequent encounter; E03.9 Hypothyroidism, unspecified; E78.5 Hyperlipidemia, unspecified; F03.90 Unspecified dementia, unspecified severity, without behavioral disturbance, psychotic disturbance, mood disturbance, and anxiety; I48.0 Paroxysmal atrial fibrillation; I27.20 Pulmonary hypertension, unspecified; I25.10 Atherosclerotic heart disease of native coronary artery without angina pectoris; I71.2 Thoracic aortic aneurysm, without rupture; W19.XXXD Unspecified fall, subsequent encounter; B96.5 Pseudomonas (aeruginosa) (mallei) (pseudomallei) as the cause of diseases classified elsewhere; E11.22 Type 2 diabetes mellitus with diabetic chronic kidney disease; G47.00 Insomnia, unspecified; E86.0 Dehydration; E87.5 Hyperkalemia; I70.0 Atherosclerosis of aorta; I95.1 Orthostatic hypotension; M10.9 Gout, unspecified; M19.90 Unspecified osteoarthritis, unspecified site; Z79.899 Other long term (current) drug therapy; Z87.440 Personal history of urinary (tract) infections; Z91.81 History of falling
CPT/HCPCS: 36415; 70030-TC; 71045; 73502; 82378; 83550; 83735; 83970; 84100; 84132; 84443; 85025; 87077; 87086; 93005; 97161; A9150; J1644; J2916; J3490; J8499